=== PATIENT | female | born 1980 | race Caucasian/White ===

== ENCOUNTER → 2022-10-09 09:03 | Outpatient (CLI) | payer OTHER, SELFPAY ==
--- NOTE | ~2022-10-09 | MMUS_ITS ---
EXAMINATION: MM diagnostic trina BI w maxi, US breast BI limited HISTORY: Palpable lumps at the 12:00 location in the right breast and in the upper inner quadrant of the left breast TECHNIQUE: Craniocaudal, mediolateral, and mediolateral oblique 3-D tomosynthesis images of the breas ts were performed and synthetic 2-D images were generated. CAD analysis was submitted and interpreted . High resolution limited bilateral breast ultrasound was performed. COMPARISON: None, baseline BREAST PARENCHYMAL COMPOSITION: The breasts are extremely dense, which lowers the sensitivity of mamm ography. FINDINGS: MAMMOGRAPHIC FINDINGS: No suspicious mass, calcification, or architectural distortion are identified in either breast to sug gest malignancy. No mammographic correlate is identified for the reported palpable abnormality of eit her breast. ULTRASOUND: There is no evidence of focal abnormal solid or cystic mass in the vicinity of the reported palpable abnormality of the right breast. There is a 7 mm x 2 mm oval, circumscribed, parallel, hypoechoic mas s with no posterior features or internal vascularity at the 12:00 location, 7 cm from the nipple in t he left breast corresponding to the palpable abnormality of concern. IMPRESSION: 1. Probably benign small left breast mass corresponding to the palpable abnormality of concern. Follo w-up targeted left breast ultrasound in six months is recommended. 2. No specific mammographic or sonographic correlate is identified for the reported palpable abnormal ity of concern in the right breast. Further evaluation at this time should be based on clinical asses sment. Continued follow-up physical examination is recommended. BI-RADS category 3, probably benign findings. Reviewed, dictated and finalized at location A. IMPRESSION: 1. Probably benign small left breast mass corresponding to the palpable abnorma lity of concern. Follow-up targeted left breast ultrasound in six months is rec ommended. 2. No specific mammographic or sonographic correlate is identified for the repo rted palpable abnormality of concern in the right breast. Further evaluation at this time should be based on clinical assessment. Continued follow-up physical examination is recommended. BI-RADS category 3, probably benign findings.
== END ==
PROVIDERS: PCP Nurse Practitioner Obstetrics & Gynecology; Visit Provider Nurse Practitioner Obstetrics & Gynecology
DX: N63.22 Unspecified lump in the left breast, upper inner quadrant (principal)
CPT/HCPCS: 76642; 77062; 77066; G0279

== ENCOUNTER 2024-05-26 09:29 | Emergency (ER) | payer OTHER, SELFPAY ==
--- NOTE | ~2024-05-26 | CT_ITS ---
Noncontrast CT scan of the thoracolumbar spine CLINICAL HISTORY: Back pain TECHNIQUE: Axial noncontrast imaging of the thoracolumbar spine was performed. Sagittal and coronal r eformatted images were constructed. Dose reduction technique was used on this scan by utilizing autom ated exposure control and iterative reconstruction technique. The dose-length product (DLP) was 1141. 72 mGy-cm. FINDINGS: No fracture or subluxation seen in the thoracic or lumbar spine. Vertebral bodies maintain normal height and alignment. Intervertebral disc spaces are relatively well preserved throughout the thoracolumbar spine. No signi ficant disc bulge or herniation seen. No definite spinal canal stenosis or cord compression evident. No definite neural foraminal narrowing seen in the thoracic or lumbar spine. Paravertebral soft tissues are unremarkable. Impression: No significant abnormality seen. Reviewed, dictated and finalized at [facility]. VISION ANTENNA INSTALLER Impression: No significant abnormality seen.
--- NOTE | ~2024-05-26 | XR_ITS ---
Right wrist Technique: PA and lateral views were obtained. Clinical History: Pain Findings: No acute fracture or dislocation is seen. Osseous alignment is anatomic. Joint spaces are p reserved. Soft tissues are unremarkable. Impression: Unremarkable right wrist radiographs. Reviewed, dictated and finalized at location M. OMA MAKER Impression: Unremarkable right wrist radiographs.
--- NOTE | ~2024-05-26 | CT_ITS ---
Noncontrast CT scan of the cervical spine Technique: Multiple contiguous axial [address] images of the cervical spine were obtained and rec onstructed in 2D sagittal and coronal planes on the acquisition scanner. Dose reduction technique was used on this scan by utilizing automated exposure control, adjustment of the mA and/or kV according to patient size. The dose-length product (DLP) was 388.07 mGy-cm. Clinical History: Pain Findings: No fractures or dislocations. There is moderate degenerative disc narrowing at C5-C6, with probable disc osteophyte complex. No prevertebral soft tissue swelling. Impression: No fracture or subluxation of the cervical spine. Mild degenerative change at C5-C6, as above. Reviewed, dictated and finalized at location . [place] BANKING MANAGER Impression: No fracture or subluxation of the cervical spine. Mild degenerative change at C5-C6, as above.
[2024-05-26 09:36] VITALS: BP 164/83; PULSE 115; RESP 16; TEMP 36.4; O2SAT 99
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
--- NOTE | 2024-05-26 12:36 | PC.NURSE ---
Pt. refused pain pill d/t driving home today.
[2024-05-26 12:38] VITALS: BP 134/83; PULSE 82; RESP 16; TEMP 36.3; O2SAT 98
[2024-05-26] MEDS: KETOROLAC 30 MG/ML VIAL (*BKC) 15 MG IM (13:46)
[2024-05-26 14:00] VITALS: BP 130/72; PULSE 80; RESP 16; O2SAT 100
--- OUTSIDE RECORDS SUMMARY | 2024-06-02 17:26 | XMS_ITS | Data Portability ---
Author Organization [facility] [place] Address [address] [place] [address] Assessment Encounter Date Assessment Date Assessment LastModified by Organization Details LastModified Time 06/10/2020 06/10/2020 Annual gynecological exam performed. Patient will come back in a year unless there are new symptoms. Not available 06/09/2020 15:40:09 12/21/2021 12/21/2021 Annual gynecological exam performed. Patient will come back in a year unless there are new symptoms. Not available 12/21/2021 15:17:56 01/22/2023 01/22/2023 Annual gynecological exam performed. Patient will come back in a year unless there are new symptoms. Not available 01/22/2023 12:09:39 03/17/2024 03/17/2024 Annual gynecological exam performed. Patient will come back in a year unless there are new symptoms. Not available 03/04/2024 11:18:26 Plan of Treatment Reminders Order Date Submit Date Provider Last Modified By Organization Details Last Modified Time Details Appointments None recorded. Lab None recorded. Referral None recorded. Procedures None recorded. Surgeries None recorded. Imaging MAMMO, screening, bilateral 2021 022 [facility], [address], [place], [address], 15:11:26 MAMMO, screening, digital, bilateral - Hx of previous BIRADS 3 result in 2022, pt due for f/u mammogram and U/S if needed 2023 024 [facility] , [address], [place], [address], 4 04:01:51 Medication Orders Nortrel 1/35 (28) 1 mg-35 mcg tablet 2020 021 [id number], [address], [place], [address], 1 11:41:12 Alyacen 1/35 (28) 1 mg-35 mcg tablet 2021 022 [id number], [address], [place], [address], 2 15:26:05 Alyacen 1/35 (28) 1 mg-35 mcg tablet 2022 023 [facility] [id number], [address], [place], [address], 3 12:12:51 Alyacen 1/35 (28) 1 mg-35 mcg tablet 2023 024 [facility] [id number], [address], [place], [address], 4 15:53:55 Patient TargetsNo targets recorded. Patient Instructions Encounter Date Encounter Id Patient Instructions Last Modified By Organization Details Last Modified Time 06/10/2020 [id number] [email or web address] Not available 11:39:16 Reason for Referral None Reported. Results Created Date Observation Date Name Description Value Unit Range Abnormal Flag Note LastModifiedBy Organization Detail LastModifiedTime 06/10/19 21 06/14/2020 pap, LB Pap test thin prep Negati ve for Intrae pithel ial Lesion or Malign oliver normal ACCES CHILO #: [id number] Sourc e: Cervi catalina/E ndoce rvica l LMP: 10/13 Date Taken : 06/10 Speci men Type: ThinP rep Vial Date Repor jose: 2020 Clini catalina Data: Cytot ech: Nicole Ivy , CT( CP) Date Repor jose: 2020 Speci men Adequ acy: Satis facto ry for evalu ation Endoc ervic al/tr ansfo rmati on zone compo nent prese nt Gener al Categ oriza tion: NEGAT KATINA FOR INTRA EPITH ELIAL LESIO N OR MALIG KEVIN Inter preta tion/ Resul t: Funga l Organ isms morph ologi divya consi stent with Isaura da speci es This speci men has been steph zed by the ThinP rep Imagi ng Syste m, an inter activ e compu ter syste m which iliana ts the lab in the scree mateus of ThinP rep Pap Test slide s. Follo wing imagi ng, the slide was revie wed by a Cytot echno logis t and/o r Patho logis t. D N A A S S A Y S R E P O R T TEST NAME RESUL TS ----- ---- ----- -- HPV High Risk Scree n (TMA) ThinP rep Vial The human papil lomav irus (HPV) High Risk Scree n is an FDA-a pprov ed in-vi tro ampli fied nucle ic acid test for the quali tativ e detec tion of E6/E7 viral mRNA. Resul ts shoul d be corre lated with patie nt prese ntati on, histo ry, cervi catalina cytol ogy and other clini catalina and labor atory findi ngs. See https ://Gloople/s ites/ defau lt/fi les/2 018-0 3/AW- 46858 _002_ 01.pd f for furth er infor matio n. Test perfo rmed by [facility], d/b/a [facility], [address], [place] [address] , Simón Mccray ra, DO, Labor atory Direc tor. HPV High Risk *HPV NOT DETEC JOSE (TYPE S 16, 18, 31, 33, 35, 39, 45, 51, 52, 56, 58, 59, 66, 68) *HPV: The human papil lomav irus (HPV) High Risk Attila manriquez is an FDA-a pprov ed in-vi tro ampli fied nucle ic acid test for the quali tativ e detec tion of E6/E7 viral mRNA. Resul ts shoul d be corre lated with patie nt prese ntati on, histo ry, cervi catalina cytol ogy and other clini catalina and labor atory findi ngs. See https ://Gloople/s ites/ defau lt/fi les/2 018-0 3AW- 73169 _002_ 01.pd f for cindy tosha infor prudence manriquez. Test perfo rmed by [facility] [employer] [facility], d/b/a [facility], [address], [place] [address] , Simón Mccray ra, DO, Labor atory Direc tor. End of t Techn ical servi layla provi ded by [facility] [employer], d/b/a [employer], [address] [place] [address] Hernesto Silver MD, [facility] [employer] Dire tor. Case revie wed and diagn osis rende red at [facility], d/b/a [facility], [address] [place] [address] Hernesto Silver MD, Labor [employer] Dire tor. CONFI DENTI AL Not Available [facility] ([facility]) [address], [place], [address], 06/14/2020 03:19:00 06/10/19 21 06/11/2020 HPV DNA, high- risk HPV high risk NOT DETECT ED normal Not Available [facility] ([facility]) [address], [place], [address], 06/14/2020 03:19:00 12/22/19 22 12/21/2021 IMAGE GUIDE D PAP AND HPV REGAR DLESS image guided Pap, HPV regardless of Pap result SEE RESULT S BELOW CASE REPOR T: Cytol ogy Gynec ologi catalina Repor t Case: [id number] Autho jeana choe Provi jose: Ernie Ernst Colle cted: 12/21 1706 PLASTIC MAKER Order ing Locat ion: [place] [facility] Recei sharif: 12/22 0658 First Scree n: Shari delgado, Ralf abel, CT Speci men: Scree mateus Pap - Image d, Cervi x STATE MENT OF ADEQU ACY: Satis facto ry for evalu ation Trans forma tion zone compo nent prese nt FINAL DIAGN OSIS: Negat katina for Intra epith elial Lesio n or Cristopher garduno (NIL) . 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 Shift in elio sugge stive of bacte rial vagin osis. Elect felicia rosas joel d by Shari delgado, Ralf abel, CT on 022 at 5:25 PM ----- ----- ----- ----- ----- ----- ----- ----- ----- ----- ----- ----- ----- ----- ----- ----- ----- ---- HPV RESUL TS: HPV mRNA E6/E7 : No HPV mRNA Detec jose NOTE: This high risk HPV mRNA assay detec ts fourt een high- risk HPV types (16, 18, 31, 33, 35, 39, 45, 51, 52, 56, 58, 59, 66, 68) witho ut diffe renti ation . COMME NT: Note: This speci men was revie wed by a Cytot echno logis t and/o r Patho logis t (as indic ated in this repor t) after evalu ation using the Thinp rep Imagi ng Syste m. CLINI CATALINA INFOR MATIO N: Menst rual Statu s: LMP (if appli cable ): Clini catalina Histo ry/Pr eviou s Pap: Type of Neopl duy (if appli cable ): Signi fican t Clini catalina Findi ngs: Other Histo ry: Hormo tina (if appli cable ): PAP EDUCA PRAVIN L NOTE: The Pap Test is a scree mateus test with an inher ent false negat katina rate. Liqui d-bas ed sampl ing may decre ase, but will not elimi marleny, false negat katina resul ts. A negat katina resul t does not precl ude the prese nce and/o r devel opmen t of disea se, since the prese nce of abnor mal cells in the sampl e depen ds on the locat ion of the lesio n and sampl ing techn ique. Nuvia nued regul ar scree mateus is the best metho d of cance r preve ntion . If repor jose cytol ogic findi ng do not corre late with physi catalina and/o r histo rical findi ngs, furth er inves tigat ion is recom remy d, as clini divya latham nted. Not Available [facility] [address] [place], [address], 12/26/2021 18:27:54 12/22/19 22 12/21/2021 TRICH OMONA S VAGIN JOSHUA (RRNA ) trichomonas vaginalis ribosomal RNA (rrna) Negati ve negati ve Not Available [facility] [address] [place], [address], 12/26/2021 18:27:54 12/22/19 22 12/21/2021 CT/GC (SELENA) , THINP REP VIAL chlamydia trachomatis, PCR Negati ve negati ve Not Available [facility] [address] [place], [address], 12/26/2021 18:27:54 12/22/19 22 12/21/2021 CT/GC (SELENA) , THINP REP VIAL neisseria gonorrhoeae, PCR Negati ve negati ve Not Available [facility] [address], [place], [address], 12/26/2021 18:27:54 10/16/19 23 10/09/2022 MAMMO , diagn ostic , digit al, bilat eral No observ ation record ed. [email or web address] [facility] [address], [place], [address], 10/31/2022 15:11:02 Result Notes None recorded. Problems Name Problem SNOMED Code Status Onset Date Resolution Date Notes Provider Name and Address Organization Details Recorded Time Glucose toleranc e test during pregnanc y - baby not yet delivere d outside referenc e range [id number] Completed 201412/21/2021 Abnormal glucose tolerance of mother, antepartu m;Recorde d Elsewhere : No Locati on: [facility] So urce: EHR Chron ic: N Practic e ID: 0001 Bill able Time: 11:00:00 AM Kassidy [facility] 2 12:42:42 Post-tra umatic wound infectio n [id number] Completed 201412/21/2021 Wound infection ;Recorded Elsewhere : No Locati on: [facility] So urce: EHR Chron ic: N Practic e ID: 0001 Bill able Time: 02:15:00 PM Kassidy Lewis [facility] 2 12:42:42 Primigra jose [id number] Completed 201412/21/2021 Supervisi on of normal first ;Practice ID: 0001 Kassidy Lewis [facility] 2 12:42:42 Glucose toleranc e test during pregnanc y - baby delivere d outside referenc e range [id number] Completed 201412/21/2021 Abnormal glucose tolerance of mother, with delivery; Practice ID: 0001 Kassidy Lewis [facility] 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 2 12:42:42 Complica tion related to pregnanc y Completed 201412/21/2021 Weight Insuffici ent Antepartu m;Practic e ID: 0001 Kassidy Lewis [facility] 2 12:42:42 Dyspnea [id number] Completed 201412/21/2021 Shortness of breath;Pr actice ID: 0001 Kassidy Lewis [facility] 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 2 12:42:42 Screenin g for malignan t neoplasm of cervix Completed 201312/21/2021 Screening for malignant neoplasms of the cervix;Re corded Elsewhere : No Locati on: [facility] So urce: EHR Chron ic: N Practic e ID: 0001 Bill able Time: 03:00:00 PM Kassidy Lewis [facility] 2 12:42:42 Pregnanc y test positive [id number] Completed 201312/21/2021 examinati on or test, positive result;Re corded Elsewhere : No Locati on: [facility] So urce: EHR Chron ic: N Practic e ID: 0001 Bill able Time: 03:00:00 PM Kassidy Lewis null, [facility] 2 12:42:[address] Concept Completed 201812/21/2021 Anxiety disorder, unspecifi ed;Record ed Elsewhere : No Locati on: [facility] So urce: EHR Chron ic: N Practic e ID: 0001 Bill able Time: 09:45:00 AM Kassidy villegas [facility] 2 12:42:42 Single live [id number] Completed 201412/21/2021 Mother with single liveborn; Practice ID: 0001 Kassidy villegas [facility] 2 12:42:42 Deliveri es by [id number] Completed 201412/21/2021 delivery, without mention of indicatio n, unspecifi ed as to episode of care;Prac michelle ID: 0001 Kassidy villegas [facility] 2 12:42:42 Postoper ative follow-u p visit Completed 201412/21/2021 Follow Up Surgery;P ractice ID: 0001 Kassidy villegas [facility] 2 12:42:42 Hyperten chilo complica ting pregnanc y, childbir th and the puerperi um [id number] Completed 201412/21/2021 Hypertens ion Postpartu m;Practic e ID: 0001 Kassidy villegas [facility] 2 12:42:42 Postpart um care Completed 201412/21/2021 Postpartu m follow-up ;Practice ID: 0001 Kassidy villegas [facility] 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 2 12:42:42 Pregnanc y test negative [id number] Completed 201512/21/2021 Encounter for test, result negative; [facility] 12:42:42 Finding of regulari ty of menstrua l cycle Completed 201512/21/2021 Irregular menstruat ion, unspecifi ed;Practi ce ID: 0001 Kassidy Lewis [facility] 2 12:42:42 Pelvic and perineal pain [id number] Completed 201512/21/2021 Pelvic and perineal pain;Prac michelle ID: 0001 Kassidy Lewis [facility] 2 12:42:42 Imaging result abnormal [id number] Completed 201512/21/2021 Abnormal findings on diagnosti c imaging of body structure s;Practic e ID: 0001 Kassidy Lewis [facility] 2 12:42:42 Human papillom avirus deoxyrib onucleic acid detected , high risk on cervical specimen [id number] Completed 201612/21/2021 Cervical high risk HPV DNA test positive; Recorded Elsewhere : No Locati on: [facility] So urce: EHR Chron ic: N Practic e ID: 0001 Bill able Time: 12:34:37 PM Kassidy Lewis [facility] 2 12:42:42 Venereal disease screenin g Completed 201312/21/2021 Screening examinati on for venereal disease;R ecorded Elsewhere : No Locati on: [facility] So urce: EHR Chron ic: N Practic e ID: 0001 Bill able Time: 03:00:00 PM Kassidy Lewis [facility] 2 12:42:42 Depressi ve disorder [id number] Completed 201612/21/2021 Depressio n;Recorde d Elsewhere : No Locati on: [facility] So urce: EHR Chron ic: N Practic e ID: 0001 Bill able Time: 03:45:00 PM Kassidy villegas [facility] 2 12:42:42 Cyst of ovary [id number] Completed 201612/21/2021 Unspecifi ed ovarian cyst, left side;Edgar rded Elsewhere : No Locati on: [facility] So urce: EHR Chron ic: N Practic e ID: 0001 Bill able Time: 08:15:00 AM Kassidy villegas [facility] 2 12:42:42 Ultrason ography Completed 201312/21/2021 screening for malformat ion using ultrasoni cs;Record ed Elsewhere : No Locati on: [facility] So urce: EHR Chron ic: N Practic e ID: 0001 Bill able Time: 01:00:00 PM Kassidy villegas [facility] 2 12:42:42 Antenata l screenin g Completed 201312/21/2021 screening for malformat ion using ultrasoni cs;Record ed Elsewhere : No Locati on: [facility] So urce: EHR Chron ic: N Practic e ID: 0001 Bill able Time: 01:00:00 PM Kassidy Lewis [facility] 2 12:42:42 Congenit al malforma tion [id number] Completed 201312/21/2021 screening for malformat ion using ultrasoni cs;Record ed Elsewhere : No Locati on: [facility] So urce: EHR Chron ic: N Practic e ID: 0001 Bill able Time: 01:00:00 PM Kassidy villegas [facility] 2 12:42:42 Adult health examinat ion Completed 201312/21/2021 ROUTINE MEDICAL EXAM;Edgar rded Elsewhere : No Locati on: [facility] So urce: EHR Chron ic: N Practic e ID: 0001 Bill able Time: 03:00:00 PM Kassidy villegas [facility] 2 12:42:42 Dietary manageme nt surveill ance Completed 201412/21/2021 DIETARY SURVEIL/C OUNSEL;Re corded Elsewhere : No Locati on: [facility] So urce: EHR Chron ic: N Practic e ID: 0001 Bill able Time: 10:30:00 AM Kassidy villegas [facility] 2 12:42:42 Body mass index 25-29 - overweig ht [id number] Completed 201612/21/2021 Body mass index (BMI) 28.0-28.9 , adult;Rec orded Elsewhere : No Locati on: [facility] So urce: EHR Chron ic: N Practic e ID: 0001 Bill able Time: 03:30:00 PM Kassidy villegas [facility] 2 12:42:42 Amenorrh ea [id number] Completed 201612/21/2021 Amenorrhe a, unspecifi ed;Practi ce ID: 0001 Kassidy villegas [facility] 2 12:42:42 Syphilis test finding [id number] Completed 201612/21/2021 Encntr screen for infection s w sexl mode of transmiss ;Practice ID: 0001 Kassidy villegas [facility] 2 12:42:42 Infectio n screenin g Completed 201612/21/2021 Encounter for screening for oth infec/par astc diseases; Recorded Elsewhere : No Locati on: [facility] So urce: EHR Chron ic: N Practic e ID: 0001 Bill able Time: 03:45:00 PM Kassidy villegas [facility] 2 12:42:42 anatomy study Completed [facility]21[facility];Re corded Elsewhere : No Locati on: [facility] So urce: EHR Chron ic: N Practic e ID: 0001 Bill able Time: 08:15:00 AM Kassidy Lewis [facility] 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 2 12:42:42 Uses combined oral contrace ption [id number] Completed 201512/21/2021 Encounter for initial prescript ion of contracep tive pills;Rec orded Elsewhere : No Locati on: [facility] So urce: EHR Chron ic: N Practic e ID: [id number] Bill able Time: 11:30:00 AM Kassidy Lewis [facility] 2 12:42:42 Finding of general energy [id number] Completed 201612/21/2021 Other fatigue;R ecorded Elsewhere : No Locati on: [facility] So urce: EHR Chron ic: N Practic e ID: 2024 Bill able Time: 03:30:00 PM Kassidy [facility] 2 12:42:42 Speciali zed medical examinat ion Completed 201312/21/2021 Other specified chlamydia l diseases; Recorded Elsewhere : No Locati on: [facility] So urce: EHR Chron ic: N Practic e ID: 0001 Bill able Time: 03:00:00 PM Kassidy [facility] 2 12:42:42 Threaten ed prematur e labor - not delivere d [id number] Completed 201412/21/2021 Threatene d premature labor, antepartu m;Practic e ID: 0001 Kassidy Lewis [facility] 2 12:42:42 Problem Notes None recorded. Procedures Surgical History Date Name Laterality Status Provider Name and Address Organization Details Recorded Time 3 Date of [facility]2023 12:11:14 2 Date of Last Pap Smear completed Sally [facility] 01/22/2023 12:10:33 procedure on foot completed [facility] 06/09/2020 15:45:21 procedure on shoulder completed [facility] 06/09/2020 15:45:32 Laparoscopy completed [facility] 06/09/2020 15:45:39 Imaging Results Imaging Date Name Status LastModified by Organiz ation Details LastModified Time 10/09/2022 MAMMO, diagnostic, digital, bilateral completed [email or web address] [facility] [address] [address], [place], [address], 10/31/2022 15:11:02 Procedure Notes None recorded. Medical Equipment None Reported. Allergies No known drug allergies Medications Name Sig Start Date Stop Date Status Note LastModified by Organization Details LastModified Time amoxicill in 500 mg capsule TAKE 1 CAPSULE BY MOUTH 3 TIMES A DAY TILL GONE 01/22 completed Not Available Not Available Not Available Augmentin 875 mg-125 mg tablet take 1 tablet by oral route every 12 hours 10/14 completed Prescrib ed Elsewher e: No Locat ion: P[facility]aj [facility] odify By: catie ramirezunttosha DateTime : 09/30/19 03:00:00 PM Not Available Not Available Not Available fluconazo le 150 mg tablet Take 1 tablet PO once x 1 dose. 01/22 completed Not Available Not Available Not Available glyburide 2.5 mg tablet take 1 tablet by oral route twice daily. 1 in am, 1 at hs 10/14 completed Prescrib ed Elsewher e: No Locat ion: Zeyad gordy [facility] odify By: catie pereira DateTime : 08/04/19 15 10:30:00 AM Not Available Not Available Not Available hydrocodo ne 5 mg-acetam inophen 325 mg tablet TAKE 1 OR 2 TABLETS BY MOUTH EVERY 6 HOURS NEEDED FOR PAIN 01/22 completed Not Available Not Available Not Available Zofran 4 mg tablet take 1 by Oral route every 6 hours prn for nausea 10/14 completed Prescrib ed Elsewher e: No [facility] odify By: amdarshan ramirezunttosha DateTime : 07/02/19 15 02:10:07 PM Not Available Not Available Not Available Zoloft 50 mg tablet take 1 tablet by oral route every day 06/10 completed Prescrib ed Elsewher e: No Locat ion: [facility] odify By: adamaris cardenas Enco unttosha DateTime : 05/16/20 19 09:45:00 AM Not Available Not Available Not Available Nortrel 0.5/35 (28) 0.5 mg-35 mcg tablet TAKE ONE TABLET BY MOUTH DAILY 12/21 completed Not Available Not Available Not Available hydroxyzi ne HCl 25 mg tablet TAKE 1 TABLET BY MOUTH THREE TIMES A DAY NEEDED FOR 30 DAYS 01/22 completed Not Available Not Available Not Available Nor-Q-D 0.35 mg tablet take 1 tablet by oral route every day 04/17 completed Prescrib ed Elsewher e: No Locat ion: Zeyad gordy [facility] odify By: smcaley Foster irvin DateTime : 11/16/19 15 02:29:25 PM Not Available Not Available Not Available Vitamin D2 1,250 mcg (50,000 unit) capsule take 1 capsule by oral route every week 10/14 completed Prescrib ed Elsewher e: No Locat ion: [facility] odify By: amdarshan pereira DateTime : 07/27/19 15 08:56:24 AM Not Available Not Available Not Available Zoloft 100 mg tablet TAKE 1 TABLET BY ORAL ROUTE EVERY DAY 04/27 completed Prescrib ed Elsewher e: No Locat ion: Pankaj kaminski [facility] odify By: kimmie pereira DateTime : 09/13/19 17 03:18:25 PM Not Available Not Available Not Available Zoloft 25 mg tablet take 1 tablet by oral route every day 06/10 completed Prescrib ed Elsewher e: No Locat ion: Pankaj kaminski [facility] odify By: adamaris Marqueso unttosha DateTime : 05/16/20 19 09:45:00 AM Not Available Not Available Not Available buspirone 15 mg tablet take 1 tablet by oral route 2 times every day 10/14 completed Prescrib ed Elsewher e: No Locat ion: Pankaj kaminski [facility] odify By: catie pereira DateTime : 03/26/20 14 01:30:00 PM Not Available Not Available Not Available vitamin B complex 03/17 completed Not Available Not Available Not Available Alyacen 1/35 (28) 1 mg-35 mcg tablet TAKE 1 TABLET BY MOUTH EVERY DAY 2023 active Not Available Not Available Not Criss morales [employer] A 28 mg iron-1 mg-200 mg capsule take 1 capsule by oral route every day 10/14 completed Prescrib ed Elsewher e: No Locat ion: Pankaj kaminski [facility] odify By: catie pereira DateTime : 03/26/20 14 01:30:00 PM Not Available Not Available Not Available One Daily 27 mg iron-800 mcg tablet take 1 tablet by oral route every day 04/17 completed Prescrib ed Elsewher e: Yes Loca tion: Pankaj kaminski [facility] odify By: [email or web address] irvin DateTime : 10/22/19 15 02:15:00 PM Not Available Not Available Not Available Vitals Date Recorded Body height Body mass index (BMI) Body weight Systolic blood pressure Diastolic blood pressure Provider Name and Address Organization Details Last Updated DateTime 12/21/2021 168.28 cm 29.8 kg/m2 00970.18 g 118 mm[Hg] 74 mm[Hg] Kassidy Lewis [facility] 2 15:20:06 Date Recorded Body height Body mass index (BMI) Body weight Systolic blood pressure Diastolic blood pressure Provider Name and Address Organization Details Last Updated DateTime 01/22/2023 168.28 cm 30.6 kg/m2 45151.14 g 132 mm[Hg] 77 mm[Hg] Sally Martino [facility] 3 12:09:54 Date Recorded Systolic blood pressure Diastolic blood pressure Provider Name and Address Organization Details Last Updated DateTime 01/22/2023 118 mm[Hg] 82 mm[Hg] Mara Wheat [facility] [address], [place], [address], [facility] 01/22/2023 12:41:09 Date Recorded Body height Body mass index (BMI) Body weight Systolic blood pressure Diastolic blood pressure Provider Name and Address Organization Details Last Updated DateTime 03/17/2024 168.91 cm 31.4 kg/m2 28370.57 g 136 mm[Hg] 80 mm[Hg] Reyna Cyndie [facility] 4 15:13:50 Date Recorded Body height Body mass index (BMI) Body weight Provider Name and Address Organization Details Last Updated DateTime 06/10/2020 172.72 cm 28.9 kg/m2 00135.55 g Beverley Yepez [facility] 06/10/2020 10:58:53 Date Recorded Systolic blood pressure Diastolic blood pressure Provider Name and Address Organization Details Last Updated DateTime 06/10/2020 130 mm[Hg] 80 mm[Hg] Mara Wheat [facility]- [address], [place], [address], [facility] 06/10/2020 11:41:24 Social History Question Answer Notes LastModified by Organizat ion Details LastModified Time Tobacco Smoking Status Former Smoker Sally Martino null, [facility] 01/22/2023 12:10:09 What Is Your Level Of Alcohol Consumption? None Information not available 06/10/2020 If You Are , What Was Your Level Of Alcohol Consumption Prior To ? None Information not available 01/22/2023 Are You Blind Or Do You Have Difficulty Seeing? No Information not available 12/21/2021 What Is Your Level Of Caffeine Consumption? Occasional Information not available 06/10/2020 How Much Tobacco Do You Chew? None Information not available 01/22/2023 In The 14 Days Before Symptom Onset, Have You Had Close Contact With A Laboratory-confir med COVID-19 While That Case Was Ill? No Information not available 01/22/2023 In The 14 Days Before Symptom Onset, Have You Had Close Contact With A Person Who Is Under Investigation For COVID-19 While That Person Was Ill? No Information not available 01/22/2023 Have You Been To An Area Known To Be High Risk For COVID-19? No Information not available 01/22/2023 Are You Deaf Or Do You Have Serious Difficulty Hearing? No Information not available 12/21/2021 What Type Of Diet Are You Following? REGULAR Information not available 12/21/2021 Do You Or Have You Ever Used E-cigarettes Or Vape? Current User Of Electronic Cigarettes Information not available 01/22/2023 What Is The Highest Grade Or Level Of School You Have Completed Or The Highest Degree You Have Received? [id number] Information not available 01/22/2023 What Is Your Occupation? [employer] Information not available 01/22/2023 How Many Days Of Moderate To Strenuous Exercise, Like A Brisk Walk, Did You Do In The Last 7 Days? 7 Information not available 01/22/2023 On Those Days That You Engage In Moderate To Strenuous Exercise, How Many Minutes, On Average, Do You Exercise? 45 Information not available 01/22/2023 When Did You Quit Smoking? 6-10yearssincelas tcigarette Information not available 01/22/2023 Are There Any Guns Present In Your Home? No Information not available 01/22/2023 Do You Use Protection During Sex? No Information not available 01/22/2023 Do You Use Your Seat Belt Or Car Seat Routinely? Yes Information not available 12/21/2021 Do You Have Smoke And Carbon Monoxide Detectors In Your Home? Yes Information not available 12/21/2021 At What Age Did You Start Smoking Tobacco? 19 Information not available 01/22/2023 Do You Or Have You Ever Used Smokeless Tobacco? Never Used Smokeless Tobacco Information not available 01/22/2023 How Much Tobacco Do You Smoke? No Information not available 01/22/2023 Do You Feel Stressed (tense, Restless, Nervous, Or Anxious, Or Unable To Sleep At Night)? [id number] Information not available 12/21/2021 Do You Use Any Illicit Or Recreational Drugs? No Information not available 06/10/2020 Do You Use Sunscreen Routinely? Yes Information not available 12/21/2021 Has Tobacco Cessation Counseling Been Provided? No Information not available 01/22/2023 How Many Years Have You Smoked Tobacco? 0 Information not available 01/22/2023 Have You Used IV Drugs? No Information not available 01/22/2023 Do You Or Have You Ever Used Any Other Forms Of Tobacco Or Nicotine? Yes Information not available 01/22/2023 How Many Years Have You Used E-cigarettes Or Vape? 2 Information not available 01/22/2023 Sex: Unknown Functional Status Question Answer Note LastModified by Organizat ion Details LastModified Time Do you have difficulty walking or climbing stairs? No Information not available 01/22/2023 Are you able to walk? YESWOREST Information not available 12/21/2021 Are you able to care for yourself? Yes Information not available 01/22/2023 Do you have difficulty dressing or bathing? No Information not available 01/22/2023 What is your exercise level? Moderate Information not available 06/10/2020 Mental Status None recorded. Family History Nothing Reported. Medical History Condition Response Diabetes Y History of abnormal pap Y Gynecological History Statement/Question Response Flow Heavy Date of Last Mammogram 10/09/2022 Date of LMP 01/15/2023 On BCP's at Conception? N N Was last menstrual period normal Y STIs/STDs N HPV Vaccine N Duration of Flow (days) 4 Current Control Method BCPs Frequency of Cycle (Q days) 28 Sexually Active? Y Menses Monthly Y Age of first menstrual cycle 14 Date of Last Pap Smear 12/21/2021 Sexual Problems? N LMP Approximate N Obstetrics History GPAL:G 1 P 0 0 0 1 Type Value Living 1 Total 1 Past Encounters Encounter ID Performer Location Encounter Start Date Encounter Closed Date Diagnosis/Indication Diagnosis SNOMED-CT Code Diagnosis ICD10 Code Diagnosis Note [id number] Mara Wheat , [facility] [address],[facility] [place] [address] 06/10/2020 10:23:08 06/10/2020 11:55:35 Gynecologic examination [id number] Z01.419 Take Calcium with Vitamin D 1200mg daily if not receiving in daily diet. It is strongly advised to have an annual flu shot and up can obtain at most pharmacies . If you have not had a TDap shot in the last 10 years you should obtain one as well. Discussed with patient & provided with informatio n regarding Gardisil vaccine to prevent the 4 strains for HPV that cause cervical cancer if under age 26. Encourage safe sexual practices, to use condoms and limit partners if not already in a monogamous relationsh ip. Do monthly self breast exams. Have mammogram yearly or every other year depending on family history. BRCA testing is now available for patients with strong genetic history of female cancer. If interested contact the office. Engage in daily exercise of low impact aerobic exercise 45-60 minutes 4-5 times weekly. Avoid tobacco and illicit drugs as well as using moderation with alcohol intake less than 1-2 8 oz beverages daily. This lifestyle behavior pattern will lead to less health conditions and longer life span. If BMI greater than 25 weight watchers or dietary consult advised. Patient received above instructio ns, and questions have been answered. If you have any questions please call or respond to this email. Patient was made aware of the patient portal and may obtain a paper copy of today's plan if desired. Happy on current OCP but did have one period recently that was very heavy. Feels it might be due to current stress of custody gallegos. We agreed to monitor for now But if keeps happening consider change of pill. Pap/hpv udated. Decline std screen Not interested in trying another antianxiet y med but if changes her mind consider Celexa low dose. [id number] KIRIT Rodriguez-[facility] [address] [address] 12/21/2021 15:04:00 12/21/2021 16:19:38 Gynecologic examination [id number] Z01.419 Take Calcium with Vitamin D 1200mg daily if not receiving in daily diet. It is strongly advised to have an annual flu shot and up can obtain at most pharmacies . If you have not had a TDap shot in the last 10 years you should obtain one as well. Discussed with patient & provided with informatio n regarding Gardisil vaccine to prevent the 4 strains for HPV that cause cervical cancer if under age 26. Encourage safe sexual practices, to use condoms and limit partners if not already in a monogamous relationsh ip. Do monthly self breast exams. Have mammogram yearly or every other year depending on family history. BRCA testing is now available for patients with strong genetic history of female cancer. If interested contact the office. Engage in daily exercise of low impact aerobic exercise 45-60 minutes 4-5 times weekly. Avoid tobacco and illicit drugs as well as using moderation with alcohol intake less than 1-2 8 oz beverages daily. This lifestyle behavior pattern will lead to less health conditions and longer life span. If BMI greater than 25 weight watchers or dietary consult advised. Patient received above instructio ns, and questions have been answered. If you have any questions please call or respond to this email. Patient was made aware of the patient portal and may obtain a paper copy of today's plan if desired. Happy on current OCP but did have one period recently that was very heavy. Feels it might be due to current stress of custody gallegos. We agreed to monitor for now But if keeps happening consider change of pill. Pap/hpv sent STD Screen sent Genetic Screen discussed Colon Screen na Dexa Screen na Routine Labs UTD PCPMammo ordered Contracept ion care management [id number] Z30.9 Happy on current OCPRF sent x 1yr Screening mammography 24 681901 Z12.31 Z80.9 [id number] [facility] [address] [address] 01/22/2023 12:00:42 01/22/2023 12:43:09 Gynecologic examination 15706791 Z11.51 Z11.8 Z11.3 Take Calcium with Vitamin D 1200mg daily if not receiving in daily diet. It is strongly advised to have an annual flu shot and up can obtain at most pharmacies . If you have not had a TDap shot in the last 10 years you should obtain one as well. Discussed with patient & provided with informatio n regarding Gardisil vaccine to prevent the 4 strains for HPV that cause cervical cancer if under age 26. Encourage safe sexual practices, to use condoms and limit partners if not already in a monogamous relationsh ip. Do monthly self breast exams. Have mammogram yearly or every other year depending on family history. BRCA testing is now available for patients with strong genetic history of female cancer. If interested contact the office. Engage in daily exercise of low impact aerobic exercise 45-60 minutes 4-5 times weekly. Avoid tobacco and illicit drugs as well as using moderation with alcohol intake less than 1-2 8 oz beverages daily. This lifestyle behavior pattern will lead to less health conditions and longer life span. If BMI greater than 25 weight watchers or dietary consult advised. Patient received above instructio ns, and questions have been answered. If you have any questions please call or respond to this email. Patient was made aware of the patient portal and may obtain a paper copy of today's plan if desired.Pa p/hpv q3yrs per asccp unless otherwise indicated. STD Screen declinedGe netic Screen discussedC olon Screen naDexa Screen naRoutine Labs UTD PCPMammo-c ompleted 2022 and visited specialist . Contracept ion care management [id number] Z30.9 Happy on current OCPRF sent x 1yr NIRANJAN OLEARY NP [place] [address] [address] 03/17/2024 15:05:54 03/17/2024 15:57:17 Gynecologic examination [id number] Z01.419 Annual gynecologi catalina exam performed. Patient will come back in a year unless there are new symptoms. Suggest Calcium with Vitamin D if not eating in diet. Patient advised to get annual flu shot. Recommend yearly physicals and perform monthly breast exams. Genetic testing is available for patients with family history of cancer. Engage in safe sexual practices, use condoms. Encouraged to have daily exercise. Avoid tobacco and illicit drugs, moderation of alcohol. If BMI greater than 25 dietary consult advised. If you have any questions please call or email. mammogram- DUE, order given for diagnostic mammogram bilaterall y due to reported sx and recommende d f/u colon cancer screening - n/a DEXA scan- n/a Pap smear- UTD, q3-5 yrs per ASCCP guidelines laboratory evaluation - PCP STI testing [facility] management [id number] Z30.9 Doing well on BC.Refill rx sent.Risks /benefits reviewed. Mass of left breast 1224 [id number] N63.20 Ordered diagnostic bilateral mammogram with U/S since pt did not f/u with imaging after seeing breast specialist . Patient to schedule mammogram immediatel y.Patient to continue to monitor for breast changes and report any concerns to office. Pain of right breast 362 1773416 N64.4 Discussed that bilateral diagnostic mammogram will be ordered to evaluate both breasts.Re commended well-fitti ng, wire-free bra and decreased caffeine intake.Rec ommended Vitamin E supplement 400 units once or twice daily to help relieve breast tenderness . Health Concerns Section Related Observation LastModified by Organization Detai ls LastModified Time None Recorded Concern Status LastModified by Organization Details LastModified Time None Recorded Advance Directives Directive None Recorded Payers Encounter Date Sequence Insurance Name Policy Number Policy Bright Covered Member ID Bright Member ID Guarantor Name 06/10/2020 2 [facility] Rosita Santana [id number] Duncan Santana 01/22/2023 1 [facility] [id number] Duncan Santana [id number] Duncan Santana 03/17/2024 1 [facility] [id number] Duncan Santana [id number] Duncan Santana Notes Date Note Type Note Provider Name and Address Organization Details Recorded Time 06/10/2020 text/html Annual GYNReport ed bypatient.History:no gynecologic complaints Menstrual cycle:Normal menses Urinary symptoms:No hematuria; No incontinence Vulva:No genital lesion Vagina:Normal vaginal discharge Breast:No breast pain; No breast lump; No nipple discharge Current Contraception:Satisf ied with current contraception; Monogamous relationship; Oral contraceptives Sexual complaints:No sexual complaints; No pain during intercourse; Normal libido Menopausal Symptoms:No menopausal symptoms; Normal vaginal lubrication Psychological symptoms:No depression; No anxiety; No PMDD Preventive measures:Encourage self breast examination; Encourage regular exercise; Encourage no tobacco use; Encourage regular mammograms starting age 40; History of abnormal pap smear/cervical dysplasia Mara Wheat [facility] [address], [place], [address], [facility] 06/10/2020 11:41:41 12/21/2021 text/html Annual GYNReport ed bypatient.Menstrual cycle:Normal menses Urinary symptoms:No hematuria; No incontinence Vulva:No genital lesion Vagina:Normal vaginal discharge Breast:No breast pain; No breast lump; No nipple discharge Current Contraception:Satisf ied with current contraception; Oral contraceptives Sexual complaints:No sexual complaints; No pain during intercourse; Normal libido Menopausal Symptoms:No menopausal symptoms; Normal vaginal lubrication Psychological symptoms:No depression; No anxiety; No PMDD Preventive measures:Encourage self breast examination; Encourage regular exercise; Encourage no tobacco use; Encourage regular mammograms starting age 40; Followed with yearly pap smears; History of abnormal pap smear/cervical dysplasia; Needs to schedule mammogram ANTONI Rodriguez [address], [place], [address], [facility] 12/21/2021 15:48:19 01/22/2023 text/html Annual GYNReport ed bypatient.Menstrual cycle:Normal menses Urinary symptoms:No hematuria; No incontinence Vulva:No genital lesion Vagina:Normal vaginal discharge Breast:No breast pain; No breast lump; No nipple discharge Sexual complaints:No sexual complaints; No pain during intercourse; Normal libido Menopausal Symptoms:No menopausal symptoms; Normal vaginal lubrication Psychological symptoms:No depression; No anxiety; No PMDD Preventive measures:Encourage self breast examination; Encourage regular exercise; Encourage no tobacco use; Encourage regular mammograms starting age 40; Mammogram performed within the past year KIRIT Rodriguez-[facility] [address], [place], [address], [facility] 01/22/2023 12:43:00 03/17/2024 text/html Annual GYNReport ed bypatient.History:no gynecologic complaints Menstrual cycle:Normal menses Urinary symptoms:No hematuria; No incontinence Vulva:No genital lesion Vagina:Normal vaginal discharge Breast:No nipple discharge;Breast pain;Breast lump Current Contraception:Satisf ied with current contraception; Oral contraceptives Sexual complaints:No sexual complaints; No pain during intercourse; Normal libido Menopausal Symptoms:No menopausal symptoms; Normal vaginal lubrication Psychological symptoms:No depression; No anxiety; No PMDD Preventive measures:Encourage self breast examination; Encourage regular exercise; Encourage no tobacco use; Encourage regular mammograms starting age 40; Needs to schedule mammogram Patient presents for annual well woman exam.Patient doing well on OCPs, requests refills.Patient due for mammogram. Patient states that she never had follow-up mammogram and U/S after her initial diagnostic mammogram 09/2022 - [facility] 3. Patient states that she still can feel the small mass in her left breast at 12 o'clock. Patient reports that this area is unchanged since last year. Patient also reports intermittent sharp pain in right breast near axilla x one week. Patient tried changing bra, but pain persists. NIRANJAN OLEARY NP [address], [place], [address], [facility] 03/17/2024 15:54:40 OBGyn Episode Ob Episode Information Episode Created Date Number of Fetuses Patient Bloodtype Patient rh Status Prepregnancy Weight lbs Domestic Partner Domestic Partner Phone Father Name Guest Experience Captain Status 06/09/19 21 1 CLOSED Fetus Data First Name Last Name Admitted to NICU Weight (g) Sex Living Outcome Pediatric Complications Fetus ID Race Codes Race Delivery Type F Full Term [id number] Primary Devon Calculation Initial Devon Date Initial Exam Date Initial Exam Provider Initial Ultrasound Date Last Menstrual Period Date Ultra Sound Weeks Gestation 0 Eighteen To Twenty Week Devon Update Ultra Sound Date Fundal Height At Umbil Quickening Date Ultra Sound Latest Weeks Gestation Final Devon Confirmed By Final Devon Confirmed Date Final Devon Date Ultra Sound Latest Days Gestation 0 0 Menstrual History Last Menstrual Date Menses Monthly On Bcp Conception Prior Menses Frequency Hcg Plus Date Menarche Onset Age Delivery Information Delivery Date Delivery Type Labor Anesthesia Weeks Gestation Incision Type Labor Labor Length Hrs Delivered By Post Complications Tubal Sterilization Discharge Date Comments 5 Discharge Information Feeding Method Contraceptive Method Maternal HG B and HCT Levels
--- OUTSIDE RECORDS SUMMARY | 2024-06-02 17:26 | XMS_ITS | Continuity of Care Document ---
Author Organization [facility] [place] Address [address] [place] [address] Assessment Encounter Date Assessment Date Assessment LastModified by Organization Details LastModified Time 03/17/2024 03/17/2024 Annual gynecological exam performed. Patient will come back in a year unless there are new symptoms. [email or web address] Not available 03/04/2024 11:18:26 Plan of Treatment Reminders Order Date Submit Date Provider Last Modified By Organization Details Last Modified Time Details Appointments None recorded. Lab None recorded. Referral None recorded. Procedures None recorded. Surgeries None recorded. Imaging MAMMO, screening, digital, bilateral - Hx of previous BIRADS 3 result in 2022, pt due for f/u mammogram and U/S if needed 2023 [facility], [address], [place], [address], 04:01:51 Medication Orders Alyacen 1/35 (28) 1 mg-35 mcg tablet 2023 [address] [place] [facility] [facility], [address] [facility], [place], [address], 15:53:55 Patient TargetsNo targets recorded. Patient InstructionsNo instructions recorded. Reason for Referral None Reported. Problems Name Problem SNOMED Code Status Onset Date Resolution Date Notes Provider Name and Address Organization Details Recorded Time Glucose toleranc e test during pregnanc y - baby not yet delivere d outside referenc e range [id number] Completed 201412/21/2021 Abnormal glucose tolerance of mother, antepartu m;Recorde d Elsewhere : No Locati on: [facility] So urce: EHR Chron ic: N Practic e ID: 0001 Bill able Time: 11:00:00 AM Kassidy villegas [facility] 2 12:42:42 Post-tra umatic wound infectio n [id number] Completed 201412/21/2021 Wound infection ;Recorded Elsewhere : No Locati on: [facility] So urce: EHR Chron ic: N Practic e ID: 0001 Bill able Time: 02:15:00 PM Kassidy villegas [facility] 2 12:42:42 Primigra jose [id number] Completed 201412/21/2021 Supervisi on of normal first ;Practice ID: 0001 Kassidy Lewis [facility] 2 12:42:42 Glucose toleranc e test during pregnanc y - baby delivere d outside referenc e range [id number] Completed 201412/21/2021 Abnormal glucose tolerance of mother, with delivery; Practice ID: 0001 Kassidy Lewis [facility] 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 2 12:42:42 Complica tion related to pregnanc y Completed 201412/21/2021 Weight Insuffici ent Antepartu m;Practic e ID: 0001 Kassidy Lewis [facility] 2 12:42:42 Dyspnea [id number] Completed 201412/21/2021 Shortness of breath;Pr actice ID: 0001 Kassidy villegas [facility] 2 12:42:42 Speciali zed medical examinat ion Completed 201312/21/2021 ROUTINE STUFFER EXAMINATI ON;Record ed Elsewhere : No Locati on: [facility] So urce: EHR Chron ic: N Practic e ID: 0001 Bill able Time: 03:00:00 PM Kassidy Lewis [facility] 2 12:42:42 Screenin g for malignan t neoplasm of cervix Completed 201312/21/2021 Screening for malignant neoplasms of the cervix;Re corded Elsewhere : No Locati on: [facility] So urce: EHR Chron ic: N Practic e ID: 0001 Bill able Time: 03:00:00 PM Kassidy Lewis [facility] 2 12:42:42 Pregnanc y test positive [id number] Completed 201312/21/2021 examinati on or test, positive result;Re corded Elsewhere : No Locati on: [facility] So urce: EHR Chron ic: N Practic e ID: 0001 Bill able Time: 03:00:00 PM Kassidy Lewis [facility] 2 12:42:[address] Concept Completed 201812/21/2021 Anxiety disorder, unspecifi ed;Record ed Elsewhere : No Locati on: [facility] So urce: EHR Chron ic: N Practic e ID: 0001 Bill able Time: 09:45:00 AM Kassidy Lewis [facility] 2 12:42:42 Single live [id number] Completed 201412/21/2021 Mother with single liveborn; Practice ID: 0001 Kassidy Lewis [facility] 2 12:42:42 Deliveri es by [id number] Completed 201412/21/2021 delivery, without mention of indicatio n, unspecifi ed as to episode of care;Prac michelle ID: 0001 Kassidy Lewis [facility] 2 12:42:42 Postoper ative follow-u p visit Completed 201412/21/2021 Follow Up Surgery;Esha durant ID: 0001 [facility] 12:42:42 Hyperten chilo complica ting pregnanc y, childbir th and the puerperi um [id number] Completed 201412/21/2021 Hypertens ion Postpartu m;Practic e ID: 0001 [facility] 12:42:42 Postpart um care Completed 201412/21/2021 Postpartu m follow-up ;Practice ID: 0001 [facility] [address] 12:[facility] Concept Completed 201512/21/2021 Encntr for trigonometry teacher exam (general) (routine) w/o abn findings; Practice ID: 0001 [facility] 12:42:42 Pregnanc y test negative [id number] Completed 201512/21/2021 Encounter for test, result negative; Practice ID: 0001 [facility] 12:42:42 Finding of regulari ty of menstrua l cycle Completed 201512/21/2021 Irregular menstruat ion, unspecifi ed;Practi ce ID: 0001 [facility] 12:42:42 Pelvic and perineal pain [id number] Completed 201512/21/2021 Pelvic and perineal pain;Prac michelle ID: 0001 [facility] 12:42:42 Imaging result abnormal [id number] Completed 201512/21/2021 Abnormal findings on diagnosti c imaging of body structure s;Practic e ID: 0001 Kassidy Lewis [facility] 2 12:42:42 Human papillom avirus deoxyrib onucleic acid detected , high risk on cervical specimen [id number] Completed 201612/21/2021 Cervical high risk HPV DNA test positive; Recorded Elsewhere : No Locati on: [facility] So urce: EHR Chron ic: N Practic e ID: 0001 Bill able Time: 12:34:37 PM Kassidy Lewis [facility] 2 12:42:42 Venereal disease screenin g Completed 201312/21/2021 Screening examinati on for venereal disease;R ecorded Elsewhere : No Locati on: [facility] So urce: EHR Chron ic: N Practic e ID: 0001 Bill able Time: 03:00:00 PM Kassidy Lewis [facility] 2 12:42:42 Depressi ve disorder [id number] Completed 201612/21/2021 Depressio n;Recorde d Elsewhere : No Locati on: [facility] So urce: EHR Chron ic: N Practic e ID: 0001 Bill able Time: 03:45:00 PM Kassidy Lewis [facility] 2 12:42:42 Cyst of ovary [id number] Completed 201612/21/2021 Unspecifi ed ovarian cyst, left side;Edgar rded Elsewhere : No Locati on: [facility] So urce: EHR Chron ic: N Practic e ID: 0001 Bill able Time: 08:15:00 AM Kassidy Lewis [facility] 2 12:42:42 Ultrason ography Completed 201312/21/2021 screening for malformat ion using ultrasoni cs;Record ed Elsewhere : No Locati on: [facility] So urce: EHR Chron ic: N Practic e ID: 0001 Bill able Time: 01:00:00 PM Kassidy Lewis null, [facility] 2 12:42:42 Antenata l jasvir g Completed 201312/21/2021 screening for malformat ion using ultrasoni cs;Record ed Elsewhere : No Locati on: [facility] So urce: EHR Chron ic: N Practic e ID: 0001 Bill able Time: 01:00:00 PM Kassidy villegas [facility] 2 12:42:42 Congenit al malforma tion [id number] Completed 201312/21/2021 screening for malformat ion using ultrasoni cs;Record ed Elsewhere : No Locati on: [facility] So urce: EHR Chron ic: N Practic e ID: 0001 Bill able Time: 01:00:00 PM Kassidy villegas [facility] 2 12:42:42 Adult health examinat ion Completed 201312/21/2021 ROUTINE MEDICAL EXAM;Edgar rded Elsewhere : No Locati on: [facility] So urce: EHR Chron ic: N Practic e ID: 0001 Bill able Time: 03:00:00 PM Kassidy villegas [facility] 2 12:42:42 Dietary manageme nt surveill ance Completed 201412/21/2021 DIETARY SURVEIL/C OUNSEL;Re corded Elsewhere : No Locati on: [facility] So urce: EHR Chron ic: N Practic e ID: 0001 Bill able Time: 10:30:00 AM Kassidy villegas [facility] 2 12:42:42 Body mass index 25-29 - overweig [id number] Completed 201612/21/2021 Body mass index (BMI) 28.0-28.9 , adult;Rec orded Elsewhere : No Locati on: [facility] So urce: EHR Chron ic: N Practic e ID: 0001 Bill able Time: 03:30:00 PM [facility] 12:42:42 Amenorrh ea [id number] Completed 201612/21/2021 Amenorrhe a, unspecifi ed;Practi ce ID: 0001 Kassidy Lewis [facility] 2 12:42:42 Syphilis test finding [id number] Completed 201612/21/2021 Encntr screen for infection s w sexl mode of transmiss ;Practice ID: 0001 Kassidy Lewis [facility] 2 12:42:42 Infectio n screenin g Completed 201612/21/2021 Encounter for screening for oth infec/par astc diseases; Recorded Elsewhere : No Locati on: [facility] So urce: EHR Chron ic: N Practic e ID: 0001 Bill able Time: 03:45:00 PM Kassidy Lewis [facility] 2 12:42:42 anatomy study Completed 201412/21/2021 [facility] ANAT SURVEY;Re corded Elsewhere : No Locati on: [facility] So urce: EHR Chron ic: N Practic e ID: 0001 Bill able Time: 08:15:00 AM Kassidy Lewis [facility] 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 2 12:42:42 Uses combined oral contrace ption [id number] Completed 201512/21/2021 Encounter for initial prescript ion of contracep tive pills;Rec orded Elsewhere : No Locati on: [facility] So urce: EHR Chron ic: N Practic e ID: 0001 Bill able Time: 11:30:00 AM Kassidy villegas [facility] 2 12:42:42 Finding of general energy [id number] Completed 201612/21/2021 Other fatigue;R ecorded Elsewhere : No Locati on: [facility] So urce: EHR Chron ic: N Practic e ID: 0001 Bill able Time: 03:30:00 PM Kassidy villegas [facility] 2 12:42:42 [facility] Completed 201312/21/2021 Other specified chlamydia l diseases; Recorded Elsewhere : No Locati on: [facility] So urce: EHR Chron ic: N Practic e ID: 0001 Bill able Time: 03:00:00 PM Kassidy villegas [facility] 2 12:42:42 Threaten ed prematur e labor - not delivere d [id number] Completed 201412/21/2021 Threatene d premature labor, antepartu m;Practic e ID: 0001 Kassidy Lewis [facility] 2 12:42:42 Problem Notes None recorded. Procedures Surgical History Date Name Laterality Status Provider Name and Address Organization Details Recorded Time 3 Date of Last Mammogram completed [facility] 01/22/2023 12:11:14 2 Date of Last Pap Smear completed [facility] 01/22/2023 12:10:33 procedure on foot completed [facility] 06/09/2020 15:45:21 procedure on shoulder completed [facility] 06/09/2020 15:45:32 Laparoscopy completed [facility] 06/09/2020 15:45:39 Imaging Results None recorded. Procedure Notes None recorded. Medical Equipment None [...] Elsewher e: No Locat ion: Pankaj kaminski [facility] odify By: catie ramirezunter DateTime : 09/30/19 03:00:00 PM Not Available Not Available Not Available fluconazo le 150 mg tablet Take 1 tablet PO once x 1 dose. 01/22 completed Not Available Not Available Not Available glyburide 2.5 mg tablet take 1 tablet by oral route twice daily. 1 in am, 1 at hs 10/14 completed Prescrib ed Elsewher e: No Locat ion: Zeyad gordy [facility] odify By: catie ramirezunttosha DateTime : 08/04/19 15 10:30:00 AM Not [...] Prescrib ed Elsewher e: No [facility] By: catie pereira DateTime : 07/02/19 15 02:10:07 PM Not Available Not Available Not Available Zoloft 50 mg tablet take 1 tablet by oral route every day 06/10 completed Prescrib ed Elsewher e: No Locat ion: [facility] odify By: adamaris cardenas Enco unter DateTime : 05/16/20 19 09:45:00 AM Not [...] Elsewher e: No Locat ion: Pankaj kaminski [facility] odify By: smcaley Encounyang irvin DateTime : 11/16/19 15 02:29:25 PM Not Available Not Available Not Available Vitamin D2 1,250 mcg (50,000 unit) capsule take 1 capsule by oral route every week 10/14 completed Prescrib ed Elsewher e: No Locat ion: Pankaj kaminski [facility] odify By: catie Kaminski ncounter DateTime : 07/27/19 15 08:56:24 AM Not Available Not Available Not Available Zoloft 100 mg tablet TAKE 1 TABLET BY ORAL ROUTE EVERY DAY 04/27 completed Prescrib ed Elsewher e: No Locat ion: Zeyad gordy [facility] odify By: kimmie Kaminski ncounter DateTime : 09/13/19 17 03:18:25 PM Not Available Not Available Not Available Zoloft 25 mg tablet take 1 tablet by oral route every day 06/10 completed Prescrib ed Elsewher e: No Locat ion: [facility] odify By: adamaris Laughlin unttosha DateTime : 05/16/20 19 09:45:00 AM Not Available Not Available Not Available buspirone 15 mg tablet take 1 tablet by oral route 2 times every day 10/14 completed Prescrib ed Elsewher e: No [facility] odify By: amkstephanie Kaminski ncounter DateTime : 03/26/20 14 01:30:00 PM Not Available Not Available Not Available vitamin B complex 03/17 completed Not Available Not Available Not Available Alyacen 1/35 (28) 1 mg-35 mcg tablet TAKE 1 TABLET BY MOUTH EVERY DAY 2023 active Not Available Not Available Not Avai lable [employer] SUPER[employer]OR-PNV-DH A 28 mg iron-1 mg-200 mg capsule take 1 capsule by oral route every day 10/14 completed Prescrib ed Elsewher e: No [facility] By: amdarshan pereira DateTime : 03/26/20 14 01:30:00 PM Not Available Not Available Not Available One Daily 27 mg iron-800 mcg tablet take 1 tablet by oral route every day 04/17 completed Prescrib ed Elsewher e: Yes Loca tion: Pankaj kaminski [facility] odify By: garcia irvin DateTime : 10/22/19 15 02:15:00 PM Not Available Not Available Not Available Vitals Date Recorded Body height Body mass index (BMI) Body weight Systolic blood pressure Diastolic blood pressure Provider Name and Address Organization Details Last Updated DateTime 03/17/2024 168.91 cm 31.4 kg/m2 79577.57 g 136 mm[Hg] 80 mm[Hg] Reyna Agee [facility] 15:13:50 Social History Question Answer Notes LastModified by Organizat ion Details LastModified Time Tobacco Smoking Status Former Smoker Sally villegas, [facility] 01/22/2023 12:10:09 What Is Your Level [...] Or The Highest Degree You Have Received? 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 [id number] Information not available 12/21/2021 Do You Use [...] SNOMED-CT Code Diagnosis ICD10 Code Diagnosis Note [id number] NIRANJAN OLEARY NP [place] [address] [address] 03/17/2024 15:05:54 03/17/2024 15:57:17 Gynecologic examination 09905250 Z01.419 Annual gynecologi donna exam performed. Patient will come back in [...] evaluation - PCP STI testing - declined Contracept ion care management [id number] Z30.9 Doing well on BC.Refill rx sent.Risks /benefits reviewed. Mass of left breast 1224 [id number] [id number] N63.20 Ordered diagnostic bilateral mammogram with U/S since pt did not f/u with imaging after seeing breast specialist . Patient to schedule mammogram immediatel y.Patient to continue to monitor for breast changes and report any concerns to office. Pain of right breast 546 [id number] N64.4 Discussed that bilateral diagnostic mammogram will be ordered to evaluate both breasts.Re commended well-fitti ng, wire-free bra and decreased caffeine intake.Rec ommended Vitamin E supplement 400 units once or twice daily to help relieve breast tenderness . Health Concerns Section Related Observation LastModified by Organization Detai ls LastModified Time None Recorded Concern Status LastModified by Organization Details LastModified Time None Recorded Payers Encounter Date Sequence Insurance Name Policy Number Policy Bright Covered Member ID Bright Member ID Guarantor Name 03/17/2024 1 [facility] [id number] Duncan Santana [id number] Duncan Santana Notes Date Note Type Note Provider Name and Address Organization Details Recorded Time 03/17/2024 text/html Annual GYNReport ed bypatient.History:no gynecologic [...] tried changing bra, but pain persists. NIRANJAN OLEARY, [place] [address], [place], [address], [facility] 03/17/2024 15:54:40 OBGyn Episode No OBEpisode recorded.
--- OUTSIDE RECORDS SUMMARY | 2024-06-02 17:27 | XMS_ITS | Clinical Summary ---
Author Organization [facility] Address [address] [place] [address] Care Team Providers Care Records Management Engineer Name Role Phone Mei Thomas MD Primary Care Provider [phone] Source Comments [facility],non-owned Affiliates and Associated Physician Practices is amultiple site organization consisting of ambulatory clinics and hospital sitesin [place], [place], [place] and [place]. This disclosure is being madepursuant to the Care Everywhere program and may not contain all information available regarding this patient. Last updated 18.[facility] Allergies No known active allergies Medications * Be aware that medications may not be up to date on this document. Alwaysverify current medications with the patient. Medication Sig Dispensed Refills Start Date End Date Status Norethindrone-Eth Estradiol (NECON /35, 28, PO) Active amoxicillin-clavulana te (AUGMENTIN) 875-125 MG tablet Take 1 tablet by mouth 2 times daily with morning and evening meal 20 tablet 02/18/2019 Active Social History Tobacco Use Types Packs/Day Years Used Date Smoking Tobacco: Former Cigarettes Smokeless Tobacco: Never Alcohol Use Standard Drinks/Week Comments No 0 (1 standard drink = 0.6 oz pur e alcohol) Sex and Gender Information Value Date Recorded Sex Assigned at Not on file Gender Identity Not on file Sexual Orientation Not on file Last Filed Vital Signs Vital Sign Reading Time Taken Comments Blood Pressure 110/74 02/18/2019 12:20 PM CDT Pulse 52 02/18/2019 12:20 PM CDT Temperature 36.8 ??C (98.2 ??F) 02/18/2019 12:20 PM C DT Respiratory Rate 16 02/18/2019 12:20 PM CDT Oxygen Saturation 98% 02/18/2019 12:20 PM CDT Inhaled Oxygen Concentration - - Weight 72.6 kg (160 lb) 02/18/2019 12:20 PM CDT Height 172.7 cm (5' 8 ) 02/18/2019 12:20 PM CDT Body Mass Index 24.33 02/18/2019 12:20 PM CDT Plan of Treatment Health Maintenance Due Date Last Done Comments LIPID TESTING 1981 MAMMOGRAM 1981 PAP SMEAR 1981 HIV SCREENING 1996 HEPATITIS C SCREENING 12/19/1999 DTAP/TDAP/TD VACCINES (1 - Tdap) 2000 HEPATITIS B VACCINE (1 of 3 - 19+ 3-dose series) 2000 COVID-19 VACCINE (1 - 2023-2 5 season) 2024 INFLUENZA VACCINE (#1) 2024 DEPRESSION SCREENING 05/27/2024 ZOSTER VACCINE (1 of 2) 12/24/2031 HIB VACCINE Aged Out No longer eligi ble based on patient's age to complete this topic HPV VACCINE Aged Out No longer eligi ble based on patient's age to complete this topic MENINGOCOCCAL VACCINE Aged Out No daiana veda eligible based on patient's age to complete this topic PNEUMOCOCCAL VACCINE Aged Out No long er eligible based on patient's age to complete this topic Care Teams Records Management Engineer Relationship Specialty Start Date End Date Mei Thomas MD [address] [place] [phone] PCP - General 11/21/10
--- OUTSIDE RECORDS SUMMARY | 2024-06-02 17:27 | XMS_ITS | Clinical Summary ---
Author Organization [address] Address [address] [place] [id number] Care Team Providers Care Marketing Admin Name Role Phone Unknown, Notinfile Primary Care Provider Unavail able Allergies No known active allergies Medications benzonatate (TESSALON) 200 mg capsule Take 1 capsule (200 mg total) by mouth 3 (three) times a day as needed for cough keep tessalon out of reach of children, especially children under the age of 10, due to possible serious risk such as if ingested by children under the age of 10. 30 capsule 4 Active albuterol HFA (PROVENTIL HFA,VENTOLIN HFA,PROAIR HFA) 90 mcg/actuation inhaler Inhale 2 puffs every 6 (six) hours as needed for wheezing 1 each 4 04/16/20 25 Active Active Problems No known active problems Encounters Date Type Department Care Team Description 04/16/2024 10:30 AM FRONT END UI DEVELOPER Ancillary Procedure [facility] Imaging at [address] [phone] Acute cough 04/16/2024 10:15 AM FRONT END UI DEVELOPER Office Visit [facility] Convenient Care at [address] [phone] Paul Vieira NP Acute lower respiratory infection (Primary Dx) from Last 3 Months Social History Tobacco Use Types Packs/Day Years Used Date Smoking Tobacco: Never Assessed Comments Unknown Sex and Gender Information Value Date Recorded Sex Assigned at Not on file Legal Sex Female 3:39 AM FRONT END UI DEVELOPER Gender Identity Not on file Sexual Orientation Not on file Obstetrics History Last Filed Vital Signs Vital Sign Reading Time Taken Comments Blood Pressure 126/86 04/16/2024 10:21 AM FRONT END UI DEVELOPER Pulse 96 04/16/2024 10:31 AM FRONT END UI DEVELOPER Temperature 37 ??C (98.6 ??F) 04/16/2024 10:21 AM FRONT END UI DEVELOPER Respiratory Rate 20 04/16/2024 10:21 AM FRONT END UI DEVELOPER Oxygen Saturation 96% 04/16/2024 10:31 AM FRONT END UI DEVELOPER Inhaled Oxygen Concentration - - Weight 83.1 kg (183 lb 4.8 oz) 04/16/2024 10:21 AM FRONT END UI DEVELOPER Height 167.6 cm (5' 6 ) 04/16/2024 10:21 AM FRONT END UI DEVELOPER Body Mass Index 29.59 04/16/2024 10:21 AM FRONT END UI DEVELOPER Plan of Treatment Health Maintenance Due Date Last Done Comments Breast Cancer Screening-Mammogram 1981 Cervical Cancer Screening 1981 Depression Screening 1981 Hepatitis C Screening 1981 Varicella Vaccines (1 of 2 - 13+ 2-dose series) 1994 Regular Well Visit/Exam 18-64 12/24/1999 DTaP/Tdap/Td Vaccine (2 - Td or Tdap) 09/08/2022 09/08/2012 Influenza Vaccine (#1) 2024 4, 03/10/2013 HPV Vaccines Aged Out No longer eligi ble based on patient's age to complete this topic Pneumococcal vaccine <65 Aged Out No longer eligible based on patient's age to complete this topic Procedures Procedure Name Priority Date/Time Associated Diagnosis Comments XR CHEST PA LATERAL 2 VIEWS Schedule ZHAO, Read ZHAO (Appt Today, Awaiting Results) 04/16/2024 10:36 AM FRONT END UI DEVELOPER Acute cough from Last 3 Months Results * XR Chest PA Lateral 2 Views (04/16/2024 10:36 AM FRONT END UI DEVELOPER) Anatomical Region Laterality Modality Body, Chest N/A Digital Radiogra phy 04/16/2024 10:5 8 AM FRONT END UI DEVELOPER Narrative 04/16/2024 11:02 AM FRONT END UI DEVELOPER EXAM DESCRIPTION: XR CHEST PA LATERAL 2 VIEWS REASON FOR STUDY: cough ?? Pt complains of cough for a little over a week. No surgery to heart, lungs, or chest. Non-smoker. ? TECHNIQUE: 2 ??radiographic view(s) of the chest. COMPARISON: None available FINDINGS: LUNGS: ??Subtle ill-defined airspace opacities in the left upper and lower lobes. No pneumothorax or pleural effusion. HEART/MEDIASTINUM: ??Cardiac silhouette normal in size. Mediastinal and hilar contours appear normal. LINES/TUBES: ??None. BONES: ??No acute osseous abnormality. IMPRESSION: Subtle ill-defined airspace opacities in the left upper and lower lobes concerning for pneumonia in the appropriate clinical setting. THIS IS AN ELECTRONICALLY VERIFIED FINAL REPORT 04/16/2024 11:02 AM - Electronically signed by ??David Rashid M.D. AG D: ??04/16/2024 11:02 AM T: Report ID: [id number] Reading Location: ??[id number] Procedure Note David Rashid MD - 04/16/2024 EXAM DESCRIPTION: XR CHEST PA LATERAL 2 VIEWS REASON FOR STUDY: cough Pt complains of cough for a little over a week. No surgery to heart,lungs, or chest. Non-smoker. TECHNIQUE: 2 radiographic view(s) of the chest. COMPARISON: None available FINDINGS: LUNGS: Subtle ill-defined airspace opacities in the left upperand lower lobes. No pneumothorax or pleural effusion. HEART/MEDIASTINUM: Cardiac silhouette normal in size. Mediastinal andhilar contours appear normal. LINES/TUBES: None. BONES: No acute osseous abnormality. IMPRESSION: Subtle ill-defined airspace opacities in the left upper and lower lobes concerning for pneumonia in the appropriate clinical setting. THIS IS AN ELECTRONICALLY VERIFIED FINAL REPORT 04/16/2024 11:02 AM - Electronically signed by David Rashid M.D. AG T: Report ID: [id number] Reading Location: [id number] Paul Vieira NP IMG XR PROCEDURES Final Result from Last 3 Months Insurance [facility] OPEN ACCESS Care Teams Marketing Admin Relationship Specialty Start Date End Date Unknown, Notinfile PCP - General 04/16/24
--- OUTSIDE RECORDS SUMMARY | 2024-06-02 17:27 | XMS_ITS | Referral Summary ---
Author Organization [facility] Address [address] [place] [address] Care Team Providers Care Battery Parts Assembler Name Role Phone Mei Thomas MD Primary Care Provider [phone] Source Comments [facility],non-owned Affiliates and Associated Physician Practices is amultiple site organization consisting of ambulatory clinics and hospital sitesin [place], [place], [place] and [place]. This disclosure is being madepursuant to the Care Everywhere program and may not contain all information available regarding this patient. Last updated 18.[facility] Allergies No known active allergies Medications * [...] 02/18/2019 12:20 PM CDT Plan of Treatment Not on file Care Teams Battery Parts Assembler Relationship Specialty Start Date End Date Mei Thomas MD [address] [place] [phone] PCP - General 11/21/10
--- OUTSIDE RECORDS SUMMARY | 2024-06-02 17:27 | XMS_ITS | Encounter Summary ---
Author Organization [facility] Address [address] [place] [address] Care Team Providers Care Maintenance Painter Name Role Phone Unknown, Notinfile Primary Care Provider Unavail able Encounter Details Date Type Department Care Team (Late st Contact Info) Description 04/16/2024 10:30 AM CANCER SPEC Ancillary Procedure [facility] Medical Group Imaging at [address] [phone] Acute cough Social History Tobacco Use Types Packs/Day Years Used Date Smoking Tobacco: Never Assessed Comments Unknown Sex and Gender Information Value Date Recorded Sex Assigned at Not on file Legal Sex Female 3:39 AM CANCER SPEC Gender Identity Not on file Sexual Orientation Not on file documented as of this encounter Plan of Treatment Not on file documented as of this encounter Procedures Procedure Name Priority Date/Time Associated Diagnosis Comments XR CHEST PA LATERAL 2 VIEWS Schedule ZHAO, Read ZHAO (Appt Today, Awaiting Results) 04/16/2024 10:36 AM CANCER SPEC Acute cough documented in this encounter Results * XR Chest PA Lateral 2 Views (04/16/2024 10:36 AM CANCER SPEC) Anatomical Region Laterality Modality Body, Chest N/A Digital Radiogra phy 04/16/2024 10:5 8 AM CANCER SPEC Narrative 04/16/2024 11:02 AM CANCER SPEC EXAM DESCRIPTION: XR CHEST PA LATERAL 2 [...] 11:02 AM - Electronically signed by ??David GARCIA D: ??04/16/2024 11:02 AM T: Report ID: [id number] Reading Location: ??[id number] Procedure Note David Rashid MD - 04/16/2024 [...] David Rashid M.D. AG T: Report ID: [id number] Reading Location: [id number] Paul Vieira NP IMG XR PROCEDURES Final Result documented in this encounter Visit Diagnoses Diagnosis Acute cough documented in this encounter Care Teams Maintenance Painter Relationship Specialty Start Date End Date Unknown, Notinfile PCP - General 04/16/24 documented as of this encounter
--- OUTSIDE RECORDS SUMMARY | 2024-06-02 17:27 | XMS_ITS | Referral Summary ---
Author Organization [address] [address] Care Team Providers Care Printing Plate Maker Name Role Phone Unknown, Notinfile Primary Care Provider Unavail able Encounters Date Type Department Care Team Description 04/16/2024 10:30 AM WOOD STOCK BLANK HANDLER Ancillary Procedure [facility] Medical [facility] Imaging at [address] [phone] Acute cough 04/16/2024 10:15 AM WOOD STOCK BLANK HANDLER Office Visit [facility] Medical [facility] Convenient Care at [address] [phone] Paul Vieira NP Acute lower respiratory infection (Primary Dx) from Last 3 Months Allergies No known active allergies Medications benzonatate [...] Active Active Problems No known active problems Social History Tobacco Use Types Packs/Day Years Used Date Smoking Tobacco: Never Assessed Comments Unknown Sex and Gender Information Value Date Recorded Sex Assigned at Not on file Legal Sex Female 3:39 AM WOOD STOCK BLANK HANDLER Gender Identity Not on file Sexual Orientation Not on file Last Filed Vital Signs Vital Sign Reading Time Taken Comments Blood Pressure 126/86 04/16/2024 10:21 AM WOOD STOCK BLANK HANDLER Pulse 96 04/16/2024 10:31 AM WOOD STOCK BLANK HANDLER Temperature 37 ??C (98.6 ??F) 04/16/2024 10:21 AM WOOD STOCK BLANK HANDLER Respiratory Rate 20 04/16/2024 10:21 AM WOOD STOCK BLANK HANDLER Oxygen Saturation 96% 04/16/2024 10:31 AM WOOD STOCK BLANK HANDLER Inhaled Oxygen Concentration - - Weight 83.1 kg (183 lb 4.8 oz) 04/16/2024 10:21 AM WOOD STOCK BLANK HANDLER Height 167.6 cm (5' 6 ) 04/16/2024 10:21 AM WOOD STOCK BLANK HANDLER Body Mass Index 29.59 04/16/2024 10:21 AM WOOD STOCK BLANK HANDLER Plan of Treatment Not on file Procedures Procedure Name Priority Date/Time Associated Diagnosis Comments XR CHEST PA LATERAL 2 VIEWS Schedule ZHAO, Read ZHAO (Appt Today, Awaiting Results) 04/16/2024 10:36 AM WOOD STOCK BLANK HANDLER Acute cough from Last 3 Months Results * XR Chest PA Lateral 2 Views (04/16/2024 10:36 AM WOOD STOCK BLANK HANDLER) Anatomical Region Laterality Modality Body, Chest N/A Digital Radiogra phy 04/16/2024 10:5 8 AM WOOD STOCK BLANK HANDLER Narrative 04/16/2024 11:02 AM WOOD STOCK BLANK HANDLER EXAM DESCRIPTION: XR CHEST PA LATERAL 2 [...] D: ??04/16/2024 11:02 AM T: Report ID: [id number] Reading Location: ??[id number] Procedure Note David Rashid MD - 04/16/2024 [...] David Rashid M.D. AG T: Report ID: [id number] Reading Location: [id number] Paul Vieira NP IMG XR PROCEDURES Final Result from Last 3 Months Insurance [employer] OPEN ACCESS Care Teams Printing Plate Maker Relationship Specialty Start Date End Date Unknown, Notinfile PCP - General 04/16/24
--- OUTSIDE RECORDS SUMMARY | 2024-06-02 17:27 | XMS_ITS | Encounter Summary ---
Author Organization [facility] Healthcare Address [address] [place] [address] Care Team Providers Care Six Sigma Black Belt Engineer Name Role Phone Unknown, Notinfile Primary Care Provider Unavail able Reason for Visit * Reason Comments Cough Symptoms started Sat urday. Mucus does not come out. Advil cold and sinus and mucinex not helping. Fever Sore Throat Scratchy and tender. Less painful than before. Shortness of Breath All the time. No hx of asthma or smoking. Back Pain Encounter Details Date Type Department Care Team (Late st Contact Info) Description 04/16/2024 10:15 AM CYLINDER DIE MACHINE HELPER Office Visit [facility] at [address] [id number] Paul Vieira NP [address] [place] [address] [address] [place] [address] Acute lower respiratory infection (Primary Dx) Social History Tobacco Use Types Packs/Day Years Used Date Smoking Tobacco: Never Assessed Comments Unknown Sex and Gender Information Value Date Recorded Sex Assigned at Not on file Legal Sex Female 3:39 AM CYLINDER DIE MACHINE HELPER Gender Identity Not on file Sexual Orientation Not on file documented as of this encounter Last Filed Vital Signs Vital Sign Reading Time Taken Comments Blood Pressure 126/86 04/16/2024 10:21 AM CYLINDER DIE MACHINE HELPER Pulse 96 04/16/2024 10:31 AM CYLINDER DIE MACHINE HELPER Temperature 37 ??C (98.6 ??F) 04/16/2024 10:21 AM CYLINDER DIE MACHINE HELPER Respiratory Rate 20 04/16/2024 10:21 AM CYLINDER DIE MACHINE HELPER Oxygen Saturation 96% 04/16/2024 10:31 AM CYLINDER DIE MACHINE HELPER Inhaled Oxygen Concentration - - Weight 83.1 kg (183 lb 4.8 oz) 04/16/2024 10:21 AM CYLINDER DIE MACHINE HELPER Height 167.6 cm (5' 6 ) 04/16/2024 10:21 AM CYLINDER DIE MACHINE HELPER Body Mass Index 29.59 04/16/2024 10:21 AM CYLINDER DIE MACHINE HELPER documented in this encounter Patient Instructions * Patient Instructions* Paul Vieira NP - 04/16/2024 10:15 AM CYLINDER DIE MACHINE HELPER If you have no improvement or worsening of your symptoms, please follow up with your Primary Care Provider, [facility] and or Emergency Room. I strive to provide you with EXCELLENT service. You may receive a survey after your visit today. If you cannot rate your experience as EXCELLENT, please let us know how we can improve and better meet your needs. Thank you for choosing [facility]! It was my pleasure to see you today, I hope you feel better soon! Paul Vieira ICE CREAM FREEZER NDER DIE MACHINE HELPER * Attachments The following attachments cannot be sent through Care Everywhere. * Acute Cough (Equipment Man) (Pakistani) documented in this encounter Ordered Prescriptions Prescription Sig Dispense Quantity Refills Last Filled Start Date End Date albuterol HFA (PROVENTIL HFA,VENTOLIN HFA,PROAIR HFA) 90 mcg/actuation inhaler Inhale 2 puffs every 6 (six) hours as needed for wheezing 1 each 04/16/2024 5 benzonatate (TESSALON) 200 mg capsule Take 1 capsule (200 mg total) by mouth 3 (three) times a day as needed for cough keep tessalon out of reach of children, especially children under the age of 10, due to possible serious risk such as if ingested by children under the age of 10. 30 capsule 04/16/2024 amoxicillin-clavul anate (Augmentin) 875-125 mg per tablet Take 1 tablet by mouth 2 (two) times a day for 5 days 10 tablet 04/16/2024 4 azithromycin (ZITHROMAX) 250 mg tablet Take 2 tabs (500 mg) by mouth today, than 1 tab (250 mg) daily for 4 days. 6 tablet 04/16/2024 4 predniSONE (DELTASONE) 20 mg tablet Take 2 tablets (40 mg) by mouth daily for 5 days Take with food 10 tablet 04/16/2024 4 documented in this encounter Progress Notes * Paul Vieira NP - 04/16/2024 10:15 AM CST Images from the original note were not included. Subjective/Objective Patient ID: Rosita Santana is a 43 y.o. female. Chief Complaint Cough (Symptoms started Saturday. Mucus does not come out. Advil cold and sinus and mucinex not helping. ), Fever, Sore Throat (Scratchy and tender. Less painful than before. ), Shortness of Breath (All the time. No hx of asthma or smoking. ), and Back Pain Pt presents to [facility] URI This is a new problem. Episode onset: saturday or of last week, worsened saturday. The problem has been gradually worsening. The maximum temperature recorded prior to her arrival was 102 - 102.9 F. Associated symptoms include coughing, shortness of breath, a sore throat and wheezing. Pertinent negatives include no abdominal pain, chest pain, congestion, diarrhea, ear pain, headaches, nausea, neck pain, rash, rhinorrhea, sinus pain, sneezing or vomiting. Treatments tried: mucinex, advil. The treatment provided moderate relief. Patient denies any known exposures or recent travel Patient declined flu, strep, COVID and RSV testing Review of Systems Constitutional: Positive for fever (102F , none since yesterday). Negative for appetite change, chills, diaphoresis and fatigue. HENT: Positive for sore throat. Negative for congestion, ear discharge, ear pain, postnasal drip, rhinorrhea, sinus pressure, sinus pain, sneezing and trouble swallowing. Respiratory: Positive for cough, shortness of breath and wheezing. Negative for chest tightness. Cardiovascular: Negative for chest pain. Gastrointestinal: Negative for abdominal pain, diarrhea, nausea and vomiting. Musculoskeletal: Positive for back pain and myalgias. Negative for neck pain and neck stiffness. Skin: Negative for rash. Neurological: Negative for dizziness and headaches. Hematological: Negative for adenopathy. Physical Exam Vitals and nursing note reviewed. Constitutional: General: She is awake. She is not in acute distress. Appearance: Normal appearance. HENT: Head: Normocephalic and atraumatic. Right Ear: Tympanic membrane and ear canal normal. Left Ear: Tympanic membrane and ear canal normal. Nose: No congestion or rhinorrhea. Right Sinus: No maxillary sinus tenderness or frontal sinus tenderness. Left Sinus: No maxillary sinus tenderness or frontal sinus tenderness. Mouth/Throat: Lips: [place]. Mouth: Mucous membranes are moist. Tongue: Tongue does not deviate from midline. Pharynx: Uvula midline. No pharyngeal swelling, oropharyngeal exudate, posterior oropharyngeal erythema or uvula swelling. Tonsils: No tonsillar exudate or tonsillar abscesses. Eyes: General: Lids are normal. Pupils: Pupils are equal, round, and reactive to light. Cardiovascular: Rate and Rhythm: Normal rate and regular rhythm. Pulses: Normal pulses. Heart sounds: Normal heart sounds. Pulmonary: Effort: Pulmonary effort is normal. No respiratory distress. Breath sounds: Decreased breath sounds present. No wheezing, rhonchi or rales. Musculoskeletal: Cervical back: Full passive range of motion without pain, normal range of motion and neck supple. Lymphadenopathy: Cervical: No cervical adenopathy. Skin: General: Skin is warm and dry. Neurological: Mental Status: She is alert and oriented to person, place, and time. Gait: Gait normal. Psychiatric: Behavior: Behavior is cooperative. Vitals: 04/16/24 1021 04/16/24 1031 BP: 126/86 BP Location: Left arm Patient Position: Sitting Pulse: 76 96 Resp: 20 Temp: 37 ??C (98.6 ??F) TempSrc: Oral SpO2: 95% 96% Weight: 83.1 kg (183 lb 4.8 oz) Height: 167.6 cm (5' 6 ) No results found. No past medical history on file. There is no problem list on file for this patient. Current Outpatient Medications: albuterol HFA (PROVENTIL HFA,VENTOLIN HFA,PROAIR HFA) 90 mcg/actuation inhaler, Inhale 2 puffs every 6 (six) hours as needed for wheezing, Disp: 1 each, Rfl: 0 amoxicillin-clavulanate (Augmentin) 875-125 mg per tablet, Take 1 tablet by mouth 2 (two) times a day for 5 days, Disp: 10 tablet, Rfl: 0 azithromycin (ZITHROMAX) 250 mg tablet, Take 2 tabs (500 mg) by mouth today, than 1 tab (250 mg) daily for 4 days., Disp: 6 tablet, Rfl: 0 benzonatate (TESSALON) 200 mg capsule, Take 1 capsule (200 mg total) by mouth 3 (three) times a dayas needed for cough keep tessalon out of reach of children, especially children under the age of 10, due to possible serious risk such as if ingested by children under the age of 10., Disp: 30 capsule, Rfl: 0 predniSONE (DELTASONE) 20 mg tablet, Take 2 tablets (40 mg) by mouth daily for 5 days Take with food, Disp: 10 tablet, Rfl: 0 No Known Allergies Social History Tobacco Use Smoking status: Not on file Smokeless tobacco: Not on file Substance and Sexual Activity Drug use: Not on file Sexual activity: Not on file Alcohol Use: Not on file No past surgical history on file. Assessment/Plan Diagnoses and all orders for this visit: Acute lower respiratory infection (Primary) - XR Chest PA Lateral 2 Views; Future Other orders - benzonatate (TESSALON) 200 mg capsule; Take 1 capsule (200 mg total) by mouth 3 (three) times a day as needed for cough keep tessalon out of reach of children, especially children under the age of 10, due to possible serious risk such as if ingested by children under the age of 10. - predniSONE (DELTASONE) 20 mg tablet; Take 2 tablets (40 mg) by mouth daily for 5 days Take with food - albuterol HFA (PROVENTIL HFA,VENTOLIN HFA,PROAIR HFA) 90 mcg/actuation inhaler; Inhale 2 puffs every 6 (six) hours as needed for wheezing - azithromycin (ZITHROMAX) 250 mg tablet; Take 2 tabs (500 mg) by mouth today, than 1 tab (250 mg) daily for 4 days. - amoxicillin-clavulanate (Augmentin) 875-125 mg per tablet; Take 1 tablet by mouth 2 (two) times aday for 5 days IMPRESSION: Subtle ill-defined airspace opacities in the left upper and lower lobes concerning for pneumonia in the appropriate clinical setting. -Recommend follow-up with PCP in the next 2-4 weeks to ensure resolution of symptoms Patient Education: -You may try: Nasal saline wash, either Neti Pot or Sinus Rinse DAILY or a saline nasal spray 3-4 times a day. Guaifenesin expectorants (Maximum Strength Mucinex, Robitussin, store brand) to loosen secretions. Warm salt water gargles as needed for sore throat. For cough you can use dextromethorphan (Delsym syrup, Robitussin cough capsules or store brand). Dextromethorphan is considered safe for and breast feeding women. You may try decongestants such as Sudafed (purchase at pharmacy) or Sudafed PE for congestion relief. Decongestants can keep you awake at night. Do not use decongestants if you have high blood pressure or if you are . If you have high blood pressure you can take otc Coricidin per package directions -Increase fluid intake: drink 2 liters (2 quarts) of non-caffeinated, non- alcoholic beverages daily, drinking alcohol causes nasal and sinus membranes to swell -Steam inhalation and warm compress to face often help relieve pressure -Avoid allergens and excessively dry heat -Sleep with head of bed elevated to encourage drainage. -Use of a humidifier if environment is heated by dry forced - air system -Avoid smoking, second-hand smoke and air pollutants. -If you are not improving within 2 weeks or worsening at anytime, follow up with your primary care provider, the [facility] and or the emergency room. Prednisone Instructions Take this medication with food, preferably breakfast. If taken too late, this medication can cause sleeplessness. Common side effects include increased blood pressure, increased water and sodium retention, increased weight gain, mood changes, and increased blood sugar. Do not take NSAIDS while taking this medication. This includes aspirin, Aleve, Ibuprofen, Naproxen,Midol, Advil, or any medications containing Ibuprofen or aspirin. TAKE ANTACIDS 2 HOURS APART FROM PREDNISONE Go to the ER or call 911 if you experience new onset fevers, personality changes, chest pain, elevated blood pressure >160/90, uncontrollable blood sugars (in diabetics), stomach pain, severe generalized muscle pain, uncontrolled blood pressure, severe headaches, changes in vision, or seizures Risk and possible side effects of prednisone discussed with patient. Pt consents to treatment. Pt. Educated on how to take medication. Disposition Treatment plan including expectations, follow up, and return precautions discussed with patient/parent, verbalizes understanding. Medication dosage, use, and potential adverse reactions discussed with patient/parent. Advised to follow up with PCP if symptoms do not resolve as expected or sooner if condition worsens. Signs/symptoms warranting ER evaluation reviewed. Patient and/or guardian was given an opportunity to ask questions, questions answered. Paul Vieira NP This office note has been partially dictated using [employer] software, and as a result portions of the record may have been created with this software. Occasional wrong-word or '[id number]' substitutions may have occurred due to the inherent limitations of voice recognition software. Read the chartcarefully and recognize, using context, where substitutions have occurred. NDER DIE MACHINE HELPER documented in this encounter Plan of Treatment Not on file documented as of this encounter Results * XR Chest PA Lateral 2 Views (04/16/2024 10:36 AM CYLINDER DIE MACHINE HELPER) Anatomical Region Laterality Modality Body, Chest N/A Digital Radiogra phy 04/16/2024 10:5 8 AM CYLINDER DIE MACHINE HELPER Narrative 04/16/2024 11:02 AM CYLINDER DIE MACHINE HELPER EXAM DESCRIPTION: XR CHEST PA LATERAL 2 [...] D: ??04/16/2024 11:02 AM T: Report ID: [id number] Reading Location: ??[id number] Procedure Note David Rashid MD - 04/16/2024 [...] David Rashid M.D. AG T: Report ID: [id number] Reading Location: [id number] Paul Vieira NP IMG XR PROCEDURES Final Result documented in this encounter Visit Diagnoses Diagnosis Acute lower respiratory infection- Primary Acute cough documented in this encounter Care Teams Six Sigma Black Belt Engineer Relationship Specialty Start Date End Date Unknown, Notinfile PCP - General 04/16/24 documented as of this encounter
--- OUTSIDE RECORDS SUMMARY | 2024-06-02 17:27 | XMS_ITS | Encounter Summary ---
Author Organization [facility] Address [address] [place] [address] Care Team Providers Care Selling Specialist Name Role Phone Mei Thomas MD Primary Care Provider [phone] Reason for Visit * Reason Comments URI Encounter Details Date Type Department Care Team (Late st Contact Info) Description 06/10/2018 11:00 AM SENIOR TECHNICAL SUPPORT ANALYST Office Visit [facility] AT [address] [phone] Provider, Kobi Brown [place] Acute maxillary sinusitis, recurrence not specified (Primary Dx); Cough Social History Tobacco Use Types Packs/Day Years Used Date Smoking Tobacco: Former Cigarettes Smokeless Tobacco: Current Alcohol Use Standard Drinks/Week Comments No 0 (1 standard drink = 0.6 oz pur e alcohol) Sex and Gender Information Value Date Recorded Sex Assigned at Not on file Gender Identity Not on file Sexual Orientation Not on file documented as of this encounter Last Filed Vital Signs Vital Sign Reading Time Taken Comments Blood Pressure 122/80 06/10/2018 10:37 AM SENIOR TECHNICAL SUPPORT ANALYST Pulse 98 06/10/2018 10:37 AM SENIOR TECHNICAL SUPPORT ANALYST Temperature 37.2 ??C (99 ??F) 06/10/2018 10:37 AM SENIOR TECHNICAL SUPPORT ANALYST Respiratory Rate 16 06/10/2018 10:37 AM SENIOR TECHNICAL SUPPORT ANALYST Oxygen Saturation 97% 06/10/2018 10:37 AM SENIOR TECHNICAL SUPPORT ANALYST Inhaled Oxygen Concentration - - Weight 72.6 kg (160 lb) 06/10/2018 10:37 AM SENIOR TECHNICAL SUPPORT ANALYST Height 172.7 cm (5' 8 ) 06/10/2018 10:37 AM SENIOR TECHNICAL SUPPORT ANALYST Body Mass Index 24.33 06/10/2018 10:37 AM SENIOR TECHNICAL SUPPORT ANALYST documented in this encounter Patient Instructions * Patient Instructions* Paul Vieira APRN-FLEXIBLE BABYSITTER - 06/10/2018 10:57 AM SENIOR TECHNICAL SUPPORT ANALYST Images from the original note were not included. Sinusitis DIRECTOR CLIENT SERVICES: Sinusitis is inflammation or infection of your sinuses. It is most often caused by a virus. Acute sinusitis may last up to 12 weeks. Chronic sinusitis lasts longer than 12 weeks. Recurrent sinusitis means you have 4 or more times in 1 year. Common symptoms include the following: ?? Fever ?? Pain, pressure, redness, or swelling around the forehead, cheeks, or eyes ?? Thick yellow or green discharge from your nose ?? Tenderness when you touch your face over your sinuses ?? Dry cough that happens mostly at night or when you lie down ?? Headache and face pain that is worse when you lean forward ?? Tooth pain, or pain when you chew Seek care immediately if: ?? Your eye and eyelid are red, swollen, and painful. ?? You cannot open your eye. ?? You have vision changes, such as double vision. ?? Your eyeball bulges out or you cannot move your eye. ?? You are more sleepy than normal, or you notice changes in your ability to think, move, or talk. ?? You have a stiff neck, a fever, or a bad headache. ?? You have swelling of your forehead or scalp. Contact your healthcare provider if: ?? Your symptoms do not improve after 3 days. ?? Your symptoms do not go away after 10 days. ?? You have nausea and are vomiting. ?? Your nose is bleeding. ?? You have questions or concerns about your condition or care. Treatment for sinusitis: Your symptoms may go away on their own. Your healthcare provider may recommend watchful waiting for up to 10 days before starting antibiotics. You may need any of the following: ?? Acetaminophen decreases pain and fever. It is available without a doctor's order. Ask how much to take and how often to take it. Follow directions. Read the labels of all other medicines you are using to see if they also contain acetaminophen, or ask your doctor or pharmacist. Acetaminophen can cause liver damage if not taken correctly. Do not use more than 4 grams (4,000 milligrams) total of acetaminophen in one day. ?? NSAIDs , such as ibuprofen, help decrease swelling, pain, and fever. This medicine is available with or without a doctor's order. NSAIDs can cause stomach bleeding or kidney problems in certain people. If you take blood thinner medicine, always ask your healthcare provider if NSAIDs are safe foryou. Always read the medicine label and follow directions. ?? Nasal steroid sprays may help decrease inflammation in your nose and sinuses. ?? Decongestants help reduce swelling and drain mucus in the nose and sinuses. They may help you breathe easier. ?? Antihistamines help dry mucus in the nose and relieve sneezing. ?? Antibiotics help treat or prevent a bacterial infection. ?? Take your medicine as directed. Contact your healthcare provider if you think your medicine is not helping or if you have side effects. Tell him or her if you are allergic to any medicine. Keep a list of the medicines, vitamins, and herbs you take. Include the amounts, and when and why you take them. Bring the list or the pill bottles to follow-up visits. Carry your medicine list with you in case of an emergency. Self-care: ?? Rinse your sinuses. Use a sinus rinse device to rinse your nasal passages with a saline (salt water) solution or distilled water. Do not use tap water. This will help thin the mucus in your nose and rinse away pollen and dirt. It will also help reduce swelling so you can breathe normally. Ask your healthcare provider how often to do this. ?? Breathe in steam. Heat a bowl of water until you see steam. Lean over the bowl and make a tent over your head with a large towel. Breathe deeply for about 20 minutes. Be careful not to get too close to the steam or burn yourself. Do this 3 times a day. You can also breathe deeply when you take ahot shower. ?? Sleep with your head elevated. Place an extra pillow under your head before you go to sleep to help your sinuses drain. ?? Drink liquids as directed. Ask your healthcare provider how much liquid to drink each day and which liquids are best for you. Liquids will thin the mucus in your nose and help it drain. Avoid drinks that contain alcohol or caffeine. ?? Do not smoke, and avoid secondhand smoke. Nicotine and other chemicals in cigarettes and cigars can make your symptoms worse. Ask your healthcare provider for information if you currently smoke and need help to quit. E-cigarettes or smokeless tobacco still contain nicotine. Talk to your healthcare provider before you use these products. Prevent the spread of germs that cause sinusitis: Wash your hands often with soap and water. Wash your hands after you use the bathroom, change a child's diaper, or sneeze. Wash your hands before youprepare or eat food. Follow up with your healthcare provider as directed: You may be referred to an ear, nose, and throat specialist. Write down your questions so you remember to ask them during your visits. ?? Copyright [employer] 2018 Information is for End User's use only and may not be sold, redistributed or otherwise used for commercial purposes. All illustrations and images included in CareNotes?? are the copyrighted property of [employer] or [employer] The above information is an braiding operator only. It is not intended as medical advice for individual conditions or treatments. Talk to your doctor, nurse or pharmacist before following any medical regimen to see if it is safe and effective for you. OR TECHNICAL SUPPORT ANALYST documented in this encounter Progress Notes * Paul Vieira APRN-CNP - 06/10/2018 10:40 AM CST Subjective: Rosita Santana is a 37 y.o. female who presents for evaluation: Chief Complaint Patient presents with ??? URI Primary Care Physician is Mei Thomas MD. Symptoms include sinusitis. Started a little over 1 week ago then Saturday night early sat am, started feeling much worse, sinus headache, congestion, chest congestion, cough, ear pressure/clogged L>R. Chills, but no fever that she knows of Onset of symptoms was a little over 1 week ago, rapidly worsening since that time. She is drinking moderate amounts of fluids. Evaluation to date: none. Treatment to date: mucinex, dayquil, nyquil, tylenol No Known Allergies Outpatient Prescriptions Marked as Taking for the 06/10/18 encounter (Office Visit) with Provider, Kobi Hammonds Medication Sig ??? amoxicillin-clavulanate (AUGMENTIN) 875-125 MG tablet Take 1 tablet by mouth 2 times daily withmorning and evening meal for 7 days ??? benzonatate (TESSALON) 200 MG capsule Take 1 capsule by mouth 3 times daily as needed for Cough ??? metFORMIN (GLUCOPHAGE) 500 MG tablet Take 500 mg by mouth 2 times daily with morning and evening meal ??? Norethindrone-Eth Estradiol (NECON , 28, PO) Past Medical History: Diagnosis Date ??? NEGATIVE PAST MEDICAL HISTORY - SEE PROBLEM LIST Social History Social History ??? Marital status: Spouse name: N/A ??? Number of children: N/A ??? Years of education: N/A Occupational History ??? Not on file. Social History Main Topics ??? Smoking status: Former Smoker Packs/day: 1.00 ??? Smokeless tobacco: Current User ??? Alcohol use No ??? Drug use: No ??? Sexual activity: Not on file Other Topics Concern ??? Not on file Social History Narrative Medications reviewed. Review of Systems Pertinent items are noted in HPI Constitutional: Positive for chills Eyes: Negative Ears, nose, mouth, and throat: Positive for sinus pressure, congestion, occasional sore throat, earpressure bilaterally, L>R. Respiratory: Positive for acute cough and chest congestion Cardiovascular: Negative Gastrointestinal: Negative Hematologic/lymphatic: Negative Musculoskeletal:Negative Neurological: Positive for headaches (sinus) Objective: BP 122/80 (BP SITE: LEFT ARM, BP POSITION: SITTING, BP CUFF SIZE: 11) Pulse 98 Temp 99 ??F (37.2 ??C) (Oral) Resp 16 Ht 1.727 m (5' 8 ) Wt 72.6 kg (160 lb) SpO2 97% BMI 24.33 kg/m2 Skin: Physical Exam Exam General appearance: alert, cooperative, no distress, oriented to person, place, and time, wellappearing Head: normocephalic, without trauma Eyes: sclera and conjunctiva clear, EOMI and PERRLA, lids normal Ears: bilateral canals occluded with cerumen, hearing intact to voice Nose: nares open; no septal deviation is noted, mucosa erythematous and swollen, purulent rhinorrhea, mild maxillary tenderness bilaterally, no frontal or ethmoid tenderness Throat: no mucous membrane abnormalities, lips, mucosa, and tongue normal; teeth and gums normal Neck: range of motion is intact, Nodes: no cervical adenopathy, non tender Lungs: breath sounds normal and symmetric; no rales or wheezes,no cough noted during exam Heart: regular rhythm, normal S1 and S2, without murmurs, gallops or rubs Neurologic: mental status normal; alert and oriented X 3; Assessment: . Encounter Diagnoses Name Primary? Acute maxillary sinusitis, recurrence not specified Yes ??? Cough Plan: Discussed dx and tx of URIs Discussed the dx and tx of sinusitis. Discussed the importance of avoiding unnecessary abx therapy. Suggested symptomatic OTC remedies. Antibiotics per orders. Nasal steroids per package directions -Drink plenty of fluids and get plenty of rest -You can take an over the counter decongestant and/or antihistamine daily (per package directions) such as Zyrtec-D -You can take Tylenol or ibuprofen as needed for fever or pain (per package directions) If you begin to run a fever or if symptoms worsen, such as difficulty breathing or shortness of breath, seek medial attention as soon as possible. Honey can be used to help with cough. The honey (2.5 to 5 ml [0.5 to 1 teaspoon]) can be given straight or diluted in liquid (eg, tea, juice) Humidifier may be helpful especially at night If symptoms persist or worsen at any time, follow up with a health care provider, clinic or emergency care RTC prn. Continue to follow up with Mei Thomas MD as directed. After Visit Summary reviewed with patient. The patient indicates understanding of these issues and agrees with the plan. Patient discharged to Home .Paul Vieira APRN-CHAZ 06/10/2018 11:08 AM Orders Placed This Encounter ??? INFLUENZA A+B - POINT OF CARE (AMB) ??? amoxicillin-clavulanate (AUGMENTIN) 875-125 MG tablet Sig: Take 1 tablet by mouth 2 times daily with morning and evening meal for 7 days Dispense: 14 tablet Refill: 0 ??? benzonatate (TESSALON) 200 MG capsule Sig: Take 1 capsule by mouth 3 times daily as needed for Cough Dispense: 30 capsule Refill: 0 Recent Results (from the past 24 hour(s)) INFLUENZA A+B - POINT OF CARE (AMB) Collection Time: 06/10/18 10:57 AM Result Value Ref Range Influenza A Antigen Rapid Negative Negative Influenza B Antigen Rapid Negative Negative Influenza Internal Control present NEGATIVE - POSITIVE Influenza Lot Number [id number] Influenza Expiration Date 08 03 2019 OR TECHNICAL SUPPORT ANALYST documented in this encounter Plan of Treatment Not on file documented as of this encounter Procedures Procedure Name Priority Date/Time Associated Diagnosis Comments INFLUENZA A+B - POINT OF CARE (AMB) Routine 06/10/2018 10:57 AM SENIOR TECHNICAL SUPPORT ANALYST Acute maxillary sinusitis, recurrence not specified documented in this encounter Results * INFLUENZA A+B - POINT OF CARE (AMB) (06/10/2018 10:57 AM SENIOR TECHNICAL SUPPORT ANALYST) Influenza A Antigen Rapid Negative Negative Influenza B Antigen Rapid Negative Negative Influenza Internal Control present NEGATIVE - POSITIVE Influenza Lot Number [id number] Influenza Expiration Date 08 03 2019 Other NASOPHARYNGEAL SWAB / Unknown 06/10/2018 10:57 AM SENIOR TECHNICAL SUPPORT ANALYST [facility] - POINT OF CA RE ORDERABLES documented in this encounter Visit Diagnoses Diagnosis Acute maxillary sinusitis, recurrence not specified- Primary Cough documented in this encounter Care Teams Selling Specialist Relationship Specialty Start Date End Date Mei Thomas MD [address] [place] [phone] PCP - General 11/21/10 documented as of this encounter
--- OUTSIDE RECORDS SUMMARY | 2024-06-02 17:27 | XMS_ITS | Patient Health Summary ---
Author Organization [facility] Address [address] [place] [address] Care Team Providers Care Hybrid Technologist Name Role Phone Mei Thomas MD Primary Care Provider Note from [facility],non-owned Affiliates and Associated Physician Practices is amultiple site organization consisting of ambulatory clinics and hospital sitesin [place], [place], [place] and [place]. This disclosure is being madepursuant to the Care Everywhere program and may not contain all information available regarding this patient. Last updated 18.[facility] Allergies No known active allergies Medications * Be aware that medications may not be up to date on this document. Alwaysverify current medications with the patient. * Norethindrone-Eth Estradiol (NECON , 28, PO) * amoxicillin-clavulanate (AUGMENTIN) 875-125 MG tablet(Started 02/18/2019) Take 1 tablet by mouth 2 times daily with morning and evening meal Social History Tobacco Use Types Packs/Day Years [...] Mass Index 24.33 02/18/2019 12:20 PM CDT Procedures * INFLUENZA A+B - POINT OF CARE (AMB)(Performed 06/10/2018) Performed for Acute maxillary sinusitis, recurrence not specified Results * INFLUENZA A+B - POINT OF CARE (AMB) (06/10/2018 10:57 AM CHAIN OFFBEARER) Influenza A Antigen Rapid Negative Negative Influenza B Antigen Rapid Negative Negative Influenza Internal Control present NEGATIVE - POSITIVE Influenza Lot Number [id number] Influenza Expiration Date 08 03 2019 Other NASOPHARYNGEAL SWAB / Unknown 06/10/2018 10:57 AM CHAIN OFFBEARER Paul Vieira SE[facility] [employer] [facility] - POINT OF CA RE ORDERABLES Care Teams Hybrid Technologist Relationship Specialty Start Date End Date Mei Thomas MD [address] [place] [phone] PCP - General 11/21/10
--- OUTSIDE RECORDS SUMMARY | 2024-06-02 17:27 | XMS_ITS | Encounter Summary ---
Author Organization [facility] Address [address] [place] [address] Care Team Providers Care Firer Bisque Kiln Name Role Phone Mei Thomas MD Primary Care Provider Reason for Visit * Reason Onset Date Comments Follow-up 02/20/2019 Encounter Details Date Type Department Care Team (Late st Contact Info) Description 02/20/2019 Telephone [facility] [address] [place] [phone] Margo Robledo APRN-CNP [address] [place] [phone] Follow-up Social History Tobacco Use Types Packs/Day Years Used Date Smoking Tobacco: Former Cigarettes Smokeless Tobacco: Never Alcohol Use Standard Drinks/Week Comments No 0 (1 standard drink = 0.6 oz pur e alcohol) Sex and Gender Information Value Date Recorded Sex Assigned at Not on file Gender Identity Not on file Sexual Orientation Not on file documented as of this encounter Miscellaneous Notes * Telephone Encounter - Margo Robledo APRN-CNP - 02/20/2019 9:24 AM CDT Attempted a follow up call, no answer and unable to leave a message. PAWEL Garg documented in this encounter Plan of Treatment Not on file documented as of this encounter Visit Diagnoses Not on filedocumented in this encounter Care Teams Firer Bisque Kiln Relationship Specialty Start Date End Date Mei Thomas MD [address] [place] [phone] PCP - General 11/21/10 documented as of this encounter
--- OUTSIDE RECORDS SUMMARY | 2024-06-02 17:27 | XMS_ITS | Encounter Summary ---
Author Organization [facility] Address [address] [place] [address] Care Team Providers Care Sewer Name Role Phone Mei Thomas MD Primary Care Provider [phone] Reason for Visit * Reason Comments Congestion Cough Sinusitis Encounter Details Date Type Department Care Team (Late st Contact Info) Description 02/18/2019 12:00 PM CDT Office Visit [facility] [address] [place] [address] Provider, Kobi Noriega Acute non-recurrent frontal sinusitis (Primary Dx) Social History Tobacco Use Types [...] Mass Index 24.33 02/18/2019 12:20 PM CDT documented in this encounter Patient Instructions * Patient Instructions* Rosa GannNISSAN-SITE SUPERVISING TECHNICAL OPERATOR - 02/18/2019 12:29 PM CDT Images from the original note were not included. Drink plenty of fluids to help thin secretions. May take Tylenol or Ibuprofen for fever or pain as directed per package instructions Recommend daily use of OTC intranasal saline irrigation per package instructions May take OTC antihistamines such as Zyrtec, Jasmin, or Claritin as directed per package instructions, for runny nose or allergy symptoms Use an alternate method of control while taking antibiotic and one week after, if applicable. Follow up with Mei Thomas MD if symptoms worsen or do not completely resolve. GO TO EMERGENCY ROOM OR CALL 911 WITH ANY OF THE FOLLOWING SYMPTOMS: HIGH, PERSISTENT FEVER >102; SWELLING, INFLAMMATION, OR REDNESS AROUND EYES, ABNORMAL EYE MOVEMENTS, VISION CHANGES (DOUBLE VISION OR IMPAIRED VISION); SEVERE HEADACHE; ALTERED MENTAL STATUS. THESE ARE SIGNS OF A RARE, BUT SERIOUS COMPLICATION AND REQUIRES IMMEDIATE EMERGENCY ATTENTION. Patient Education Sinusitis FRIT COATER: Sinusitis is inflammation or infection of your [...] ask them during your visits. ?? Copyright [employer] 2019 Information is for End User's use only and may not be sold, redistributed or otherwise used for commercial purposes. All illustrations and images included in CareNotes?? are the copyrighted property of [employer], [employer]. or [employer] The above information is an medicaid biller only. It is not intended as medical advice for individual conditions or treatments. Talk to your doctor, nurse or pharmacist before following any medical regimen to see if it is safe and effective for you. documented in this encounter Progress Notes * Rosa Gann APRN-CNP - 02/18/2019 12:24 PM CDT Images from the original note were not included. Subjective: Rosita Santana is a 38 year old female who presents to clinic today for Chief Complaint Patient presents with ??? Congestion ??? Cough ??? Sinusitis Rosita Santana is here for evaluation of congestion, post nasal drip, sinus pressure. her PCP is Mei Thomas MD. She states the Onset was: 1 month and course is gradually worsening, symptoms wax and wane. She is drinking plenty of fluids.. Past History of sinus issues. She is a former smoker, quit 5 years ago. The sinus pain is described as aching and pressure, and is 7/10 in intensity. OTC- Zyrtec and Tylenol. Sick Contacts: No known sick contacts. Past Medical History: Diagnosis Date ??? NEGATIVE PAST MEDICAL HISTORY - SEE PROBLEM LIST No family history on file. Current Outpatient Medications Medication Sig Dispense Refill ??? amoxicillin-clavulanate (AUGMENTIN) 875-125 MG tablet Take 1 tablet by mouth 2 times daily withmorning and evening meal 20 tablet 0 ??? Norethindrone-Eth Estradiol (NECON , 28, PO) No current facility-administered medications for this visit. No Known Allergies Social History Socioeconomic History ??? Marital status: Spouse name: Not on file ??? Number of children: Not on file ??? Years of education: Not on file ??? Highest education level: Not on file Occupational History ??? Not on file Social Needs ??? Financial resource strain: Not on file ??? Food insecurity: Worry: Not on file Inability: Not on file ??? Transportation needs: Medical: Not on file Non-medical: Not on file Tobacco Use ??? Smoking status: Former Smoker Packs/day: 1.00 Types: Cigarettes ??? Smokeless tobacco: Never Used Substance and Sexual Activity ??? Alcohol use: No ??? Drug use: No ??? Sexual activity: Not on file Lifestyle ??? Physical activity: Days per week: Not on file Minutes per session: Not on file ??? Stress: Not on file Relationships ??? Social connections: Talks on phone: Not on file Gets together: Not on file Attends sabianist service: Not on file Active member of club or organization: Not on file Attends meetings of clubs or organizations: Not on file Relationship status: Not on file ??? Intimate partner violence: Fear of current or ex partner: Not on file Emotionally abused: Not on file Physically abused: Not on file Forced sexual activity: Not on file Other Topics Concern ??? Not on file Social History Narrative ??? Not on file Review of Systems Constitutional: Positive for fatigue, fevers Eyes: Negative Ears, nose, mouth, and throat: Positive for ear drainage bilaterally, sinus trouble, hoarseness, congestion Respiratory: Positive for acute cough Cardiovascular: Negative Hematologic/lymphatic: Negative Objective: BP 110/74 Pulse 52 Temp 98.2 ??F (36.8 ??C) Resp 16 Ht 1.727 m (5' 8 ) Wt 72.6 kg (160 lb) SpO2 98%BMI 24.33 kg/m2 General appearance: alert, cooperative, no distress, oriented to person, place, and time, cooperative Head: normocephalic, without trauma Eyes: sclera and conjunctiva clear Ears: TM not visualized due to cerumen impaction Nose: mucosa erythematous and swollen, purulent rhinorrhea, Left nare smaller than right (previous nasal surgery), tenderness palpated at the frontal sinus bilaterally Throat: mild oropharyngeal erythema Neck: supple Nodes: no cervical, pre-auricular or post-auricular adenopathy Lungs: breath sounds normal and symmetric; no rales or wheezes Heart: regular rhythm, normal S1 and S2, without murmurs, gallops or rubs Assessment: Encounter Diagnosis Name Primary? Acute non-recurrent frontal sinusitis Yes Plan: Drink plenty of fluids to help thin secretions. May take Tylenol or Ibuprofen for fever or pain as directed per package instructions Recommend daily use of OTC intranasal saline irrigation per package instructions May take OTC antihistamines such as Zyrtec, Jasmin, or Claritin as directed per package instructions, for runny nose or allergy symptoms Use an alternate method of control while taking antibiotic and one week after, if applicable. Reviewed education materials and instructions with patient and answered all questions. Rosita Santana verbalized understanding and agrees with plan. Follow up with Mei Thomas MD if symptoms worsen or do not completely resolve. GO TO EMERGENCY ROOM OR CALL 911 WITH ANY OF THE FOLLOWING SYMPTOMS: HIGH, PERSISTENT FEVER >102; SWELLING, INFLAMMATION, OR REDNESS AROUND EYES, ABNORMAL EYE MOVEMENTS, VISION CHANGES (DOUBLE VISION OR IMPAIRED VISION); SEVERE HEADACHE; ALTERED MENTAL STATUS. THESE ARE SIGNS OF A RARE, BUT SERIOUS COMPLICATION AND REQUIRES IMMEDIATE EMERGENCY ATTENTION. Orders Placed This Encounter ??? amoxicillin-clavulanate (AUGMENTIN) 875-125 MG tablet Sig: Take 1 tablet by mouth 2 times daily with morning and evening meal Dispense: 20 tablet Refill: 0 NATHALIE Arce 02/18/2019 12:39 PM documented in this encounter Plan of Treatment Not on file documented as of this encounter Visit Diagnoses Diagnosis Acute non-recurrent frontal sinusitis- Primary documented in this encounter Care Teams Sewer Relationship Specialty Start Date End Date Mei Thomas MD [address] [place] [phone] PCP - General 11/21/10 documented as of this encounter
--- OUTSIDE RECORDS SUMMARY | 2024-06-02 17:27 | XMS_ITS | Encounter Summary ---
Author Organization [facility] Address [address] [place] [address] Care Team Providers Care Garnett Feeder Name Role Phone Mei Thomas MD Primary Care Provider Reason for Visit * Reason Onset Date Comments Follow-up 06/11/2018 Encounter Details Date Type Department Care Team (Late st Contact Info) Description 06/11/2018 Telephone [facility] AT [address] [address] Provider, [facility] Follow-up Social History Tobacco Use Types Packs/Day [...] on filedocumented in this encounter Care Teams Garnett Feeder Relationship Specialty Start Date End Date Mei Thomas MD [address] [place] [phone] PCP - General 11/21/10 documented as of this encounter
== END 2024-05-26 14:08 | disposition home or self-care (01) ==
PROVIDERS: Emergency Provider Student in an Organized Health Care Education/Training Program
DX: M50.30 Other cervical disc degeneration, unspecified cervical region (principal); M54.9 Dorsalgia, unspecified; M25.531 Pain in right wrist; V89.0XXA Person injured in unspecified motor-vehicle accident, nontraffic, initial encounter
CPT/HCPCS: 72125; 72128; 72131; 73100; 96372; 99284; J1885